=== PATIENT | male | born 1975 | race Caucasian/White ===

== ENCOUNTER 2018-03-12 12:50 | Inpatient (IN) ==
--- NOTE | 2018-03-12 13:26 | Emergency Department Note ---
Disposition Clinical Impression: Altered mental status, unspecified Qualifiers: Altered mental status type: somnolence Qualified Code(s): R40.0 - Somnolence Disposition: Still a Patient Referrals: NONE,PCP [Primary Care Provider] - General Adult HPI - General Chief complaint: ED Altered Mental Status Stated complaint: AMS Time Seen by Provider: 03/12/18 12:53 Source: EMS Nursing Notes Reviewed: Yes Vital Signs Reviewed: Yes - History of Present Illness HPI Narrative: ED attending attestation note: I examined this patient and my medical decision-making was reviewed with the emergency medicine resident Staci Torres. I agree with the documented findings, disposition and treatment plan as described except to the extent set forth below. Briefly: 42-year-old male history of some MRDD in a senior care presented by EMS complete by caretakers for altered mental status. This is the patient's from a milk and uncooperative. The past several days up to week or perhaps more he has been "walking into funes and not acting like himself". Patient does have slow response he is cooperative and follows commands. Patient is afebrile with stable vital signs. Patient will undergo mental status workup with admission anticipated. Disposition pending. Pain Scale: 0 - Related Data Home Medications Medication Instructions Recorded Confirmed Aspirin [Adult Low Dose Aspirin EC] 81 mg PO DAILY 05/22/15 03/12/18 Divalproex (24 HR) [Depakote ER 1,000 mg PO BID 05/22/15 03/12/18 (24 HR)] Gemfibrozil [Lopid] 600 mg PO BID 05/22/15 03/12/18 Haloperidol Decanoate [Haldol 125 mg IM PRN PRN 05/22/15 03/12/18 Decanoate 100] Lisinopril 2.5 mg PO DAILY 05/22/15 03/12/18 [place] Carbonate 300 mg PO TID 05/22/15 03/12/18 Loratadine [Claritin] 10 mg PO DAILY 05/22/15 03/12/18 Lovastatin [Mevacor] 20 mg PO HS 05/22/15 03/12/18 Lurasidone HCl [Latuda] 80 mg PO DAILY 05/22/15 03/12/18 Metformin HCl [Fortamet] 1,000 mg PO DAILY 05/22/15 03/12/18 Quetiapine Fumarate [Seroquel Xr] 600 mg PO BID 05/22/15 03/12/18 Artificial Tear Drops [Isopto 1 drop OP BID #0 09/02/15 03/12/18 Tears] Calcium Carbonate/Vitamin D3 1 tab PO BID 09/02/15 03/12/18 [Oyster Shell Calcium-Vit D Tab] LORazepam [Ativan] 1 mg PO BID 09/02/15 03/12/18 Levothyroxine [Synthroid] 50 mcg PO DAILY 09/02/15 03/12/18 Metformin HCl [Fortamet] 500 mg PO HS 09/02/15 03/12/18 Niacin [Niacor] 500 mg PO BID 09/02/15 03/12/18 [place]-3/Dha/Epa/Fish Oil [Fish Oil 1,000 mg PO BID #0 09/02/15 03/12/18 1,000 mg Softgel] Omeprazole [PriLOSEC] 20 mg PO QMWFSU 09/02/15 03/12/18 cloNIDine [Catapres] 0.1 mg PO DAILY 09/02/15 03/12/18 Previous Rx's Medication Instructions Recorded Doxycycline 100 mg PO BID #20 capsule 09/02/15 levoFLOXacin [Levaquin] 750 mg PO DAILY #7 tablet 07/06/17 predniSONE [PredniSONE] 40 mg PO DAILY #5 tablet 07/06/17 Allergies Allergy/AdvReac Type Severity Reaction Status Date / Time No Known Allergies Allergy Verified 03/12/18 12:19 Past Medical History - Past Medical History Medical history: Reports: COPD, DVT, diabetes, GERD, hyperlipidemia, hypertension, other Surgical history: Reports: no surgical history Psychiatric history: Reports: bipolar, schizophrenia, other - Social History Smoking Status: Current every day smoker Smokeless Tobacco Status: No Alcohol use: Reports: none Drug use: Reports: none Physical Exam - General General appearance: in no apparent distress Course Vital Signs Temperature 97.9 F 03/12/18 12:50 Pulse Rate 80 03/12/18 12:50 Respiratory Rate 16 03/12/18 12:50 Blood Pressure 103/70 03/12/18 12:50 O2 Sat by Pulse Oximetry 100 03/12/18 12:50 Temperature 97.9 F 03/12/18 12:50 Pulse Rate 80 03/12/18 12:50 Respiratory Rate 16 03/12/18 12:50 Blood Pressure 103/70 03/12/18 12:50 O2 Sat by Pulse Oximetry 100 03/12/18 12:50 Oxygen Delivery Oxygen Delivery Room Air
--- NOTE | 2018-03-12 13:26 | Emergency Department Note ---
Disposition Clinical Impression: Altered mental status, unspecified Qualifiers: Altered mental status type: somnolence Qualified Code(s): R40.0 - Somnolence Disposition: Admitted As Inpatient Condition: Fair Referrals: NONE,PCP [Primary Care Provider] - Forms: ED Satisfaction Letter Time of Disposition: 16:22 General Adult HPI - General Chief complaint: ED Altered Mental Status Stated complaint: AMS Time Seen by Provider: 03/12/18 12:53 Source: family, EMS Mode of arrival: EMS Limitations: altered mental status Nursing Notes Reviewed: Yes Vital Signs Reviewed: Yes - History of Present Illness HPI Narrative: 42-year-old male with significant past medical history of COPD and diabetes presenting to the emergency department chief complaint of altered mental status. Patient is currently living in a chcf as he has MRDD. According to his nursing specialist for the past 2 days he has had altered mental status progressively getting worse. He has been falling when he is trying ambulate and has had dark, foul-smelling urine. Today they were unable to ambulate him which is not his baseline they became concerned and brought him to urgent care. Urgent care gave him a gram of IM Rocephin because they were concerned for urinary tract infection and transferred him here for further evaluation. Patient is unable to provide any history of present illness. He is somnolent but arousable with sternal rub. Pain Scale: 0 - Related Data Home Medications Medication Instructions Recorded Confirmed Aspirin [Adult Low Dose Aspirin EC] 81 mg PO DAILY 05/22/15 03/12/18 Divalproex (24 HR) [Depakote ER 1,000 mg PO BID 05/22/15 03/12/18 (24 HR)] Gemfibrozil [Lopid] 600 mg PO BID 05/22/15 03/12/18 Haloperidol Decanoate [Haldol 125 mg IM PRN PRN 05/22/15 03/12/18 Decanoate 100] Lisinopril 2.5 mg PO DAILY 05/22/15 03/12/18 [place] Carbonate 300 mg PO TID 05/22/15 03/12/18 Loratadine [Claritin] 10 mg PO DAILY 05/22/15 03/12/18 Lovastatin [Mevacor] 20 mg PO HS 05/22/15 03/12/18 Lurasidone HCl [Latuda] 80 mg PO DAILY 05/22/15 03/12/18 Metformin HCl [Fortamet] 1,000 mg PO DAILY 05/22/15 03/12/18 Quetiapine Fumarate [Seroquel Xr] 600 mg PO BID 05/22/15 03/12/18 Artificial Tear Drops [Isopto 1 drop OP BID #0 09/02/15 03/12/18 Tears] Calcium Carbonate/Vitamin D3 1 tab PO BID 09/02/15 03/12/18 [Oyster Shell Calcium-Vit D Tab] LORazepam [Ativan] 1 mg PO BID 09/02/15 03/12/18 Levothyroxine [Synthroid] 50 mcg PO DAILY 09/02/15 03/12/18 Metformin HCl [Fortamet] 500 mg PO HS 09/02/15 03/12/18 Niacin [Niacor] 500 mg PO BID 09/02/15 03/12/18 [place]-3/Dha/Epa/Fish Oil [Fish Oil 1,000 mg PO BID #0 09/02/15 03/12/18 1,000 mg Softgel] Omeprazole [PriLOSEC] 20 mg PO QMWFSU 09/02/15 03/12/18 cloNIDine [Catapres] 0.1 mg PO DAILY 09/02/15 03/12/18 Previous Rx's Medication Instructions Recorded Doxycycline 100 mg PO BID #20 capsule 09/02/15 levoFLOXacin [Levaquin] 750 mg PO DAILY #7 tablet 07/06/17 predniSONE [PredniSONE] 40 mg PO DAILY #5 tablet 07/06/17 Allergies Allergy/AdvReac Type Severity Reaction Status Date / Time No Known Allergies Allergy Verified 03/12/18 12:19 Limitations: ROS unobtainable due to patients medical condition Past Medical History - Past Medical History Source: old records reviewed Medical history: Reports: COPD, DVT, diabetes, GERD, hyperlipidemia, hypertension, other Surgical history: Reports: no surgical history Psychiatric history: Reports: bipolar, schizophrenia, other - Social History Smoking Status: Current every day smoker Smokeless Tobacco Status: No Alcohol use: Reports: none Drug use: Reports: none Physical Exam - General General appearance: lethargic - Head Head exam: atraumatic, normocephalic, normal inspection - ENT ENT exam: mucous membranes dry - Chest Chest inspection: Present: symmetric chest wall rise - Respiratory Respiratory exam: Present: normal lung sounds bilaterally. Absent: respiratory distress, wheezes - Cardiovascular Cardiovascular exam: Present: regular rate, normal rhythm, normal heart sounds - Abdominal Exam Abdominal exam: Present: soft. Absent: distention, guarding, rebound - Extremities Exam Extremities exam: Present: normal inspection - Skin Skin exam: Present: dry, normal color Course Course Narrative: 42-year-old male presenting for altered mental status. In the room he is hemodynamically stable. Unable to perform full neurological exam due to his somnolence. Concern for infectious etiology at this time due to recent symptoms of dark and foul-smelling urine. We will perform basic laboratory analysis, urine analysis, CT of the head. We will also obtain blood cultures in case this is an infectious etiology. Disposition most likely admission but pending results. - Reevaluation(s) Reevaluation #1: Patient's laboratory analysis does not show any acute abnormality at this time. Chest x-ray and urine drug screen are within normal limits. CT of the head shows no acute abnormality. Patient has had transient altered mental status throughout his stay elbow he has been hemodynamically stable. Patient asked if he did smoke cigarettes therefore put in a nicotine patch for him. Due to his transient altered mental status he is not safe to go home to his chcf at this time. We will plan to admit him for further evaluation and observation. Patient and caregiver at bedside agree with this plan. I spoke with the hospitalist foundation coordinator Dr. Modi who agrees to accept the patient at this time. Vital Signs Temperature 97.9 F 03/12/18 12:50 Pulse Rate 80 03/12/18 12:50 Respiratory Rate 16 03/12/18 12:50 Blood Pressure 103/70 03/12/18 12:50 O2 Sat by Pulse Oximetry 100 03/12/18 12:50 Temperature 97.9 F 03/12/18 12:50 Pulse Rate 71 03/12/18 13:21 Respiratory Rate 18 03/12/18 13:21 Blood Pressure 104/76 03/12/18 13:21 O2 Sat by Pulse Oximetry 100 03/12/18 13:21 Oxygen Delivery Oxygen Delivery Room Air Medical Decision Making - Lab Data Result diagrams: 03/12/18 13:30 03/12/18 13:30 Lab Results 03/12/18 03/12/18 03/12/18 Range/Units 13:30 13:30 15:00 WBC 4.4 (4.3-11.1) K/mcL RBC 3.50 L (4.19-5.50) M/mcL Hgb 10.8 L (12.9-16.9) g/dL Hct 34.6 L (37.5-50.1) % MCV 98.9 (83.0-100.0) fL MCH 30.9 (28.0-33.3) pg MCHC 31.2 L (31.6-35.5) g/dL RDW 14.5 (11.5-14.5) % Plt Count 38 L (140-400) K/mcL MPV 9.7 (9.4-12.4) fL Immature Gran % 0.7 (0-4) % Seg Neutrophils % 52.5 % Lymphocytes % 33.5 % Monocytes % 11.5 % Eosinophils % 0.9 % Basophils % 0.9 % Neutrophils # 2.3 (1.6-8.9) K/mcL Lymphocytes # 1.5 (0.6-4.6) K/mcL Monocytes # 0.5 (0.0-1.3) K/mcL Eosinophils # 0.0 (0.0-0.6) K/mcL Basophils # 0.0 (0.0-0.2) K/mcL Immature Plt Fraction 2.1 (1.1-6.1) % Sodium 139 (136-145) mEq/L Potassium 4.5 (3.5-5.1) mEq/L Chloride 105 (98-107) mEq/L Carbon Dioxide 32 H (23-29) mEq/L BUN 24 H (6-20) mg/dL Creatinine 1.07 (0.70-1.30) mg/dL Est GFR ( Amer) > 60 (> 60) Est GFR (Non-Af Amer) > 60 (> 60) BUN/Creatinine Ratio 22 (6-26) Glucose 99 (70-105) mg/dL Calculated Osmolality 292 (280-300) Calcium 9.4 (8.6-10.3) mg/dL Total Bilirubin 0.4 (0.3-1.0) mg/dL Direct Bilirubin 0.1 (0.0-0.2) mg/dL Indirect Bilirubin 0.3 (0.0-1.2) mg/dL AST 21 (13-39) Units/L ALT 14 (7-52) Units/L Alkaline Phosphatase 43 (34-104) Units/L Troponin I < 0.03 (< 0.04) ng/mL Serum Total Protein 6.1 L (6.4-8.9) g/dL Albumin 3.6 (3.5-5.7) g/dL Globulin 2.5 (2.4-3.5) g/dL Albumin/Globulin Ratio 1.4 (1.1-2.2) Urine Color Yellow (Yellow) Urine Clarity Clear (Clear) Urine pH 7.5 (5.0-8.0) pH Units Ur Specific [place] 1.019 (1.010-1.025) Urine Protein Negative (Neg-Trace) mg/dL Urine Glucose (UA) Normal (Normal) mg/dL Urine Ketones Trace H (Negative) mg/dL Urine Blood Negative (Negative) Urine Nitrite Negative (Negative) Urine Bilirubin Small H (Negative) Urine Urobilinogen Normal (Normal) mg/dL Ur Leukocyte Esterase Trace H (Negative) Urine Microscopic RBC 0-3 (0-3) per hpf Urine Microscopic WBC 0-3 (0-3) per hpf Ur Squamous Epith Cells Moderate H (None-Few) per lpf Urine Bacteria None Seen (None-Few) per hpf Hyaline Casts None Seen (None-Few) per lpf Ur Culture Indicated? YES A (NO) Urine Opiates Screen (Ctpodk=585) ng/mL Ur Barbiturates Screen (Pvaodh=056) ng/mL Ur Phencyclidine Scrn (Cutoff=25) ng/mL Ur Amphetamines Screen (Gshwru=4031) ng/mL U Benzodiazepines Scrn (Vbawwq=297) ng/mL Urine Cocaine Screen (Cutoff= 300) ng/mL U Marijuana (THC) Screen (Cutoff = 50) ng/mL Ur Drug Screen Interp Ethyl Alcohol < 10 (Less than 10) mg/dL 03/12/18 Range/Units 15:00 WBC (4.3-11.1) K/mcL RBC (4.19-5.50) M/mcL Hgb (12.9-16.9) g/dL Hct (37.5-50.1) % MCV (83.0-100.0) fL MCH (28.0-33.3) pg MCHC (31.6-35.5) g/dL RDW (11.5-14.5) % Plt Count (140-400) K/mcL MPV (9.4-12.4) fL Immature Gran % (0-4) % Seg Neutrophils % % Lymphocytes % % Monocytes % % Eosinophils % % Basophils % % Neutrophils # (1.6-8.9) K/mcL Lymphocytes # (0.6-4.6) K/mcL Monocytes # (0.0-1.3) K/mcL Eosinophils # (0.0-0.6) K/mcL Basophils # (0.0-0.2) K/mcL Immature Plt Fraction (1.1-6.1) % Sodium (136-145) mEq/L Potassium (3.5-5.1) mEq/L Chloride (98-107) mEq/L Carbon Dioxide (23-29) mEq/L BUN (6-20) mg/dL Creatinine (0.70-1.30) mg/dL Est GFR ( Amer) (> 60) Est GFR (Non-Af Amer) (> 60) BUN/Creatinine Ratio (6-26) Glucose (70-105) mg/dL Calculated Osmolality (280-300) Calcium (8.6-10.3) mg/dL Total Bilirubin (0.3-1.0) mg/dL Direct Bilirubin (0.0-0.2) mg/dL Indirect Bilirubin (0.0-1.2) mg/dL AST (13-39) Units/L ALT (7-52) Units/L Alkaline Phosphatase (34-104) Units/L Troponin I (< 0.04) ng/mL Serum Total Protein (6.4-8.9) g/dL Albumin (3.5-5.7) g/dL Globulin (2.4-3.5) g/dL Albumin/Globulin Ratio (1.1-2.2) Urine Color (Yellow) Urine Clarity (Clear) Urine pH (5.0-8.0) pH Units Ur Specific [place] (1.010-1.025) Urine Protein (Neg-Trace) mg/dL Urine Glucose (UA) (Normal) mg/dL Urine Ketones (Negative) mg/dL Urine Blood (Negative) Urine Nitrite (Negative) Urine Bilirubin (Negative) Urine Urobilinogen (Normal) mg/dL Ur Leukocyte Esterase (Negative) Urine Microscopic RBC (0-3) per hpf Urine Microscopic WBC (0-3) per hpf Ur Squamous Epith Cells (None-Few) per lpf Urine Bacteria (None-Few) per hpf Hyaline Casts (None-Few) per lpf Ur Culture Indicated? (NO) Urine Opiates Screen Negative (Fpbmgq=892) ng/mL Ur Barbiturates Screen Negative (Cjpqyh=769) ng/mL Ur Phencyclidine Scrn Negative (Cutoff=25) ng/mL Ur Amphetamines Screen Negative (Xqphen=2789) ng/mL U Benzodiazepines Scrn Negative (Sptnfk=871) ng/mL Urine Cocaine Screen Negative (Cutoff= 300) ng/mL U Marijuana (THC) Screen Negative (Cutoff = 50) ng/mL Ur Drug Screen Interp See Below Ethyl Alcohol (Less than 10) mg/dL - EKG Data EKG #1 EKG attestation: Yes I reviewed and interpreted this EKG. EKG results narrative: Sinus rhythm. Left axis deviation. 74 beats for minute. SC interval 167, QRS 109, QTC 432. No sign of acute ST segment elevation or ischemia
[2018-03-12 13:50] LABS: Mean Platelet Volume 9.7 fL (9.4-12.4)
[2018-03-12 13:51] LABS: Basophils % 0.9 %; Eosinophils % 0.9 %; Immature Granulocytes % 0.7 % (0-4); Monocytes % 11.5 %
[2018-03-12 13:52] LABS: Hematocrit 34.6 % (37.5-50.1); Hemoglobin 10.8 g/dL (12.9-16.9); Immature Platelets 2.1 % (1.1-6.1); Lymphocytes # 1.5 K/mcL (0.6-4.6); Lymphocytes % 33.5 %; Mean Corpuscular HGB Conc 31.2 g/dL (31.6-35.5); Mean Corpuscular Hemoglobin 30.9 pg (28.0-33.3); Mean Corpuscular Volume 98.9 fL (83.0-100.0); Monocytes # 0.5 K/mcL (0.0-1.3); Neutrophils # 2.3 K/mcL (1.6-8.9); Red Cell Distribution Width 14.5 % (11.5-14.5); Segmented Neutrophils % 52.5 %
[2018-03-12 13:55] LABS: Platelet Count 38 K/mcL (140-400)
[2018-03-12 14:14] LABS: Troponin I < 0.03 ng/mL (< 0.04)
[2018-03-12 14:16] LABS: Alanine Aminotransferase 14 Units/L (7-52); Albumin 3.6 g/dL (3.5-5.7); Albumin/Globulin Ratio 1.4 (1.1-2.2); Alkaline Phosphatase 43 Units/L (34-104); Aspartate Amino Transferase 21 Units/L (13-39); BUN/Creatinine Ratio 22 (6-26); Bilirubin,Direct 0.1 mg/dL (0.0-0.2); Bilirubin,Indirect 0.3 mg/dL (0.0-1.2); Bilirubin,Total 0.4 mg/dL (0.3-1.0); Blood Urea Nitrogen 24 mg/dL (6-20); Calcium 9.4 mg/dL (8.6-10.3); Carbon Dioxide 32 mEq/L (23-29); Chloride 105 mEq/L (98-107); Ethanol < 10 mg/dL (Less than 10); Globulin 2.5 g/dL (2.4-3.5); Glucose 99 mg/dL (70-105); Osmolality,Calculated 292 (280-300); Potassium 4.5 mEq/L (3.5-5.1); Sodium 139 mEq/L (136-145); Total Protein 6.1 g/dL (6.4-8.9); eGFR For Non-African Americans > 60 (> 60)
[2018-03-12 15:14] LABS: Bilirubin,Urine Small (Negative); Blood,Urine Negative (Negative); Clarity,Urine Clear (Clear); Color,Urine Yellow (Yellow); Glucose,Urine (UA) Normal (Normal); Ketones,Urine Trace mg/dL (Negative); Leukocyte Esterase,Urine Trace (Negative); Nitrite,Urine Negative (Negative); PH,Urine 7.5 pH Units (5.0-8.0); Protein,Urine Negative (Neg-Trace); Specific Gravity,Urine 1.019 (1.010-1.025); Urobilinogen,Urine Normal (Normal)
[2018-03-12 15:19] LABS: Bacteria,Urine None Seen per hpf (None-Few); Hyaline Casts,Urine None Seen per lpf (None-Few); RBC,Urine 0-3 per hpf (0-3); Squamous Epithelial Cell,Urine Moderate per lpf (None-Few); WBC,Urine 0-3 per hpf (0-3)
[2018-03-12 15:21] LABS: Amphetamine Screen,Urine Negative ng/mL (Cutoff=1000); Barbiturate Screen,Urine Negative ng/mL (Cutoff=200); Benzodiazepines Screen,Urine Negative ng/mL (Cutoff=200); Cannabinoid Screen,Urine Negative ng/mL (Cutoff = 50); Cocaine Screen,Urine Negative ng/mL (Cutoff= 300); Opiate Screen,Urine Negative ng/mL (Cutoff=300); Phencyclidine Screen,Urine Negative ng/mL (Cutoff=25)
[2018-03-12] MEDS ORDERED: Naloxone 0.4 MG/ML INJ IVP PRN (16:26)
[2018-03-12 16:49] LABS: Creatine Kinase 53 Units/L (30-223)
--- NOTE | 2018-03-12 16:53 | Internal Med History&Physical ---
Date of Encounter: 03/12/18 Time of Encounter: 16:46 Internal Medicine - H&P: HPI Chief complaint: AMS Admitted From: Long-term Nursing Facility Plans for Post Hospital Care: Transfer Assisted Facility History of present illness: Mr. Koch is a 42 year old male with MRDD lives at [facility], COPD, DM2, Bipolar disorder on multiple psych medications and recent tooth extraction presented to the ED with AMS. car is unable to provide any history ( at baseline). As per caregiver setting at bedside he has become more lethargic over the past 2 days and has become more unsteady on his feet. She denies recent falls or head trauma. In addition to above he is also developed dark, foul-smelling urine for the past 2 days however he is not complaining of any dysuria or burning or difficulty urinating to the caregiver. On the day of admission he had increased difficulty and was more unsteady on his feet so the caregiver to come to the urgent care in the urgent care he received IM ceftriaxone for possible urinary tract infection and was transferred to [place] for further evaluations. Caregiver also reports that he recently had to teeth extracted for cavity however there were no complications. While the emergency department CT head performed which was negative for any acute abnormalities. Chest x-ray did not show any acute cardiopulmonary disease. UA was positive and U tox was negative he was endorsed for further evaluation of his altered mental status. when asked if he has any complaints he shakes his head no. unable to provide ROS while being treated in the ED and after receiving ceftriaxone as per critical care transport nurse at bedside his mental status is more at baseline Past Med Surg Social Fam HX - Past Medical History Medical history: COPD, DVT, diabetes, GERD, hyperlipidemia, hypertension, other Additional medical history: cataracts. speech impediment Psychiatric history: bipolar, schizophrenia, other - Past Surgical History Surgical History: no surgical history - Social History Smoking Status: Current every day smoker Smokeless Tobacco Status: No Alcohol use: none Drug use: none - Family History Mother Hx Family Cardiac Disorders: Yes Hx Family Respiratory Disorders: No Hx Family Cancer: No Hx Family GI Disorders: Yes (GERD) Hx Family Endocrine Disorder: Yes (DM) Hx Family Neuromuscular Disorders: No Hx Family Neurologic Disorders: No Hx Family HEENT Disorders: No Hx Family Autoimmune Disorders: No Father Living Status: Still Living Hx Family Cardiac Disorders: No Hx Family Respiratory Disorders: No Hx Family Cancer: No Hx Family GI Disorders: No Hx Family Endocrine Disorder: Yes (DM) Hx Family Neuromuscular Disorders: No Hx Family Neurologic Disorders: No Hx Family HEENT Disorders: No Hx Family Autoimmune Disorders: No Internal Medicine - H&P: Meds Divalproex (24 HR) [Depakote ER (24 HR)] 1,000 mg PO BID 05/22/15 [History] Gemfibrozil [Lopid] 600 mg PO BID 05/22/15 [History] Haloperidol Decanoate [Haldol Decanoate 100] 125 mg IM Q2W 05/22/15 [History] Lisinopril 2.5 mg PO DAILY 05/22/15 [History] Tamms Carbonate 300 mg PO 07,199905/22/15 [History] Loratadine [Claritin] 10 mg PO DAILY 05/22/15 [History] Lovastatin [Mevacor] 20 mg PO HS 05/22/15 [History] Lurasidone HCl [Latuda] 80 mg PO QPM 05/22/15 [History] Metformin HCl [Fortamet] 1,000 mg PO 0705/22/15 [History] Artificial Tear Drops [Isopto Tears] 1 drop OP DAILY #0 09/02/15 [History] Calcium Carbonate/Vitamin D3 [Oyster Shell Calcium-Vit D Tab] 1 tab PO BID 09/02/15 [History] LORazepam [Ativan] 1 mg PO 0800,199909/02/15 [History] Metformin HCl [Fortamet] 500 mg PO 199909/02/15 [History] Niacin [Niacor] 500 mg PO BID 09/02/15 [History] [place]-3/Dha/Epa/Fish Oil [Fish Oil 1,000 mg Softgel] 1,000 mg PO BID #0 09/02/15 [History] Omeprazole [PriLOSEC] 20 mg PO QAM 09/02/15 [History] cloNIDine [Catapres] 0.1 mg PO DAILY 09/02/15 [History] Acetaminophen [Tylenol] 650 mg PO Q4HR PRN 03/12/18 [History] Albuterol Neb [Proventil Neb] 2.5 mg IH Q2H PRN 03/12/18 [History] Ammonium Lactate [Lac-Hydrin Five] 1 appl TP DAILY 03/12/18 [History] Aspirin [Lo-Dose Aspirin EC] 81 mg PO DAILY 03/12/18 [History] Glucagon,Human Recombinant [Glucagen] 1 vial IM AD PRN 03/12/18 [History] Ibuprofen [Motrin Ib] 400 mg PO Q4H PRN 03/12/18 [History] Levothyroxine Sodium [Tirosint] 75 mcg PO QAM 03/12/18 [History] Loperamide HCl [Imodium A-D] 2 - 4 mg PO DAILY PRN 03/12/18 [History] Magnesium Hydroxide [Milk of Magnesia] 3 ml PO DAILY PRN 03/12/18 [History] Miconazole 2% cream [Alfonso Antifungal] 1 appl TP QAM 03/12/18 [History] Quetiapine Fumarate [Quetiapine Fumarate ER] 200 mg PO 0700,199903/12/18 [History] Quetiapine Fumarate [Quetiapine Fumarate ER] 400 mg PO 0700,199903/12/18 [History] Tolnaftate [Tinactin] 108 gm TP QAM 03/12/18 [History] Triamcinolone Acet 0.1% CRM [Kenalog] 1 applic TP BID PRN 03/12/18 [History] Trihexyphenidyl HCl 5 mg PO QAM 03/12/18 [History] Allergy/AdvReac Type Severity Reaction Status Date / Time No Known Allergies Allergy Verified 03/12/18 12:19 ROS unobtainable: due to mental status - Constitutional Vitals: Temp Pulse Resp BP Pulse Ox 97.9 F 71 18 104/76 100 03/12/18 12:50 03/12/18 13:21 03/12/18 13:21 03/12/18 13:21 03/12/18 13:21 Exam: General: Patient is alert, drooling, unkempt, pale Head: atraumatic, normocephalic, prominent forehead Eye: normal appearance, PERRL, no scleral icterus, no conjunctival injection ENT: mucous membranes moist, normal external ear exam, right lower tooth extraction no signs of bleeding Neck: Full range of motion of the neck, no neck stiffness Chest: normal inspection, symmetric chest rise Respiratory: Good respiratory effort. Decreased breath sounds bilaterally, could not appreciate any wheezing or crackles Cardiovascular: Regular rate and rhythm. s1 and s2 No clicks, rubs, gallops, or murmors. Abdomen: Bowel sounds present normoactive x-4 quadrants. Abdomen is soft, nondistended. no Epigastric tenderness. No guarding or rebound. No organomegaly noted, obese musculoskeletal: Spontaneously moving all extremities. no edema, no calf t enderness Skin: warm, dry, intact. Neuro: Alert and oriented to self, place and person. When asked who the president he replied Payam Chahal. currently moving all extremities. Psych: Patient's affect is normal Internal Med - H&P Results - Labs CBC & Chem 7: 03/12/18 13:30 03/12/18 13:30 Labs: Short CBC 03/12/18 Range/Units 13:30 WBC 4.4 (4.3-11.1) K/mcL Hgb 10.8 L (12.9-16.9) g/dL Hct 34.6 L (37.5-50.1) % Plt Count 38 L (140-400) K/mcL Neutrophils # 2.3 (1.6-8.9) K/mcL BMP 03/12/18 13:30 Sodium 139 Potassium 4.5 Chloride 105 Carbon Dioxide 32 H BUN 24 H Creatinine 1.07 Glucose 99 Calcium 9.4 Cardiac Enzymes 03/12/18 Range/Units 13:30 Troponin I < 0.03 (< 0.04) ng/mL Liver Function 03/12/18 Range/Units 13:30 Total Bilirubin 0.4 (0.3-1.0) mg/dL Direct Bilirubin 0.1 (0.0-0.2) mg/dL AST 21 (13-39) Units/L ALT 14 (7-52) Units/L Alkaline Phosphatase 43 (34-104) Units/L Albumin 3.6 (3.5-5.7) g/dL Urine 03/12/18 Range/Units 15:00 Urine Color Yellow (Yellow) Urine Clarity Clear (Clear) Urine pH 7.5 (5.0-8.0) pH Units Ur Specific [place] 1.019 (1.010-1.025) Urine Protein Negative (Neg-Trace) mg/dL Urine Glucose (UA) Normal (Normal) mg/dL - EKG Data -: EKG Interpreted by Myself (sinus rhythm, QTC 432 ) - EKG Data Prior EKG available for review: yes When compared to previous EKG: there is no significant change - Impressions ITS Impressions Chest X-Ray 03/12/18 13:21 IMPRESSION: 1. No acute cardiopulmonary disease. 2. Stable opacity in the left mid lung zone periphery, measuring approximately 2.5 cm. Adjacent pleural thickening is also seen. D/ / 03/12/2018 13:59:37 Sara Reddy MD / [place] Interpreting Provider: Sara Reddy MD Head CT 03/12/18 13:21 IMPRESSION: No acute intracranial abnormality. D/ / Mack Chatterjee MD / Mack Chatterjee MD Interpreting Provider: Mack Chatterjee MD - Assessment and plan (1) Acute encephalopathy Current Visit: Yes Status: Acute Assessment and plan: acute encephalopathy most likely secondary to urinary tract infection He is on multiple psych medications such as lithium, depakote we will check levels CT head negative for any acute abnormality Neuro checks every 4 hours U tox negative Continue with IV hydration with NS at 80 mL/h Aspiration, fall, seizure precautions will get brain MRI to r/o posterior fossa stroke (2) UTI (urinary tract infection) Current Visit: Yes Status: Acute Assessment and plan: Continue with ceftriaxone Follow urine cultures Qualifiers: Urinary tract infection type: acute cystitis Hematuria presence: without hematuria Qualified Code(s): N30.00 - Acute cystitis without hematuria (3) Thrombocytopenia Current Visit: No Status: Acute Assessment and plan: ? medication induced Platelets range anywhere from 79-190 currently there are 38 Avoid antiplatelets, anticoagulation No signs of bleeding Type and screen PT/INR peripheral smear (4) Normocytic anemia Current Visit: Yes Status: Acute Assessment and plan: Baseline H&H ranges anywhere from 10.8 to 13 Currently 10.8 Did have recent tooth extraction and has thrombocytopenia will watch for bleeding (5) Developmental delay, moderate Current Visit: Yes Status: Acute Assessment and plan: MRDD at baseline We will continue redirection Fall, aspiration, seizure precautions (6) Schizophrenia Current Visit: Yes Status: Acute Assessment and plan: We will continue home medications Follow drug levels as per caregiver levels have not been checked for a long time Qualifiers: Schizophrenia type: unspecified Qualified Code(s): F20.9 - Schizophrenia, unspecified (7) Left pulmonary lesion Current Visit: Yes Status: Acute Assessment and plan: chronic CT on 09/2017 - Previously described ovoid opacity within the left upper lobe peripherally measures approximately 4.8 x 2.3 cm, slightly increased in size as compared to 4.0 x 1.8 cm on the previous study. PET scan performed on 10/28/17- IMPRESSION: Minimal metabolic activity is seen within peripheral and bandlike zones of consolidation within the left lung, favoring etiology such as rounded atelectasis or scarring over malignancy as a consequence. Continued CT follow-up is suggested. There is however mild activity within loculated small left pleural effusion. Some considerations include inflammatory, infectious, or malignant effusion. Large amount of stool throughout the colon. Small amount of fluid is seen within the right inguinal canal with mild associated activity, suggestive of localized inflammation. Suggest correlation with physical exam. (8) Current every day smoker Current Visit: Yes Status: Acute Assessment and plan: nicotine patch (9) DVT prophylaxis Current Visit: No Status: Acute Assessment and plan: SCDs - Time Spent With Patient Total time spent is greater than 50% in coordination of care (as documented) at patient's floor/unit and/or counseling patient:
[2018-03-12] MEDS ORDERED: MOM Conc 10 ML UD.LIQ PO PRN (17:01)
[2018-03-12] MEDS ORDERED: Acetaminophen 325 MG TABLET PO PRN (17:01)
[2018-03-12] MEDS ORDERED: Albuterol 2.5 MG/3 ML NEBULIZER IH PRN (17:01)
[2018-03-12] MEDS ORDERED: Triamcinolone Acet 0.1% CRM 15 GM TUBE TP PRN (17:01)
[2018-03-12] MEDS ORDERED: QUETIAPINE FUMARATE 200 MG PO SCH (20:00)
[2018-03-12] MEDS: Thiamine (B-1) 100 MG in D5% in Water 50 ML IVPB SCH (21:34)
[2018-03-12] MEDS: Divalproex (24 HR) 500 MG TABLET PO SCH (21:35)
[2018-03-12] MEDS: *HR* LORazepam 1 MG TABLET PO SCH (21:35)
[2018-03-12] MEDS: Nicotine 21 MG PATCH.TD24 TD SCH (21:36)
[2018-03-12] MEDS: Lithium Carbonate 300 MG CAPSULE PO SCH (21:36)
[2018-03-12] MEDS: 0.9 % Sodium Chloride 1,000 ML IVC SCH (21:36)
[2018-03-12] MEDS: NIACIN 500 MG PO SCH (21:51)
[2018-03-12] MEDS: (Omega-3/Dha/Epa/Fish Oil [Fish Oil 1,000 Mg Softgel]) PO SCH (21:51)
[2018-03-12] MEDS: cefTRIAXone 2,000 MG in 0.9 % Sodium Chloride Mini Bag 100 ML IVPB SCH (23:17)
[2018-03-13 04:35] LABS: Basophils # 0.1 K/mcL (0.0-0.2); Immature Granulocytes % 0.6 % (0-4)
[2018-03-13 04:37] LABS: Eosinophils % 0.8 %; Hematocrit 36.5 % (37.5-50.1); Hemoglobin 11.3 g/dL (12.9-16.9); Immature Platelets 1.7 % (1.1-6.1); Lymphocytes # 1.4 K/mcL (0.6-4.6); Lymphocytes % 27.1 %; Mean Corpuscular Hemoglobin 30.4 pg (28.0-33.3); Mean Corpuscular Volume 98.1 fL (83.0-100.0); Mean Platelet Volume 9.8 fL (9.4-12.4); Monocytes # 0.7 K/mcL (0.0-1.3); Monocytes % 13.2 %; Red Blood Count 3.72 M/mcL (4.19-5.50); Red Cell Distribution Width 14.1 % (11.5-14.5); Segmented Neutrophils % 57.3 %
[2018-03-13 04:38] LABS: Prothrombin Time 11.5 Seconds (9.4-12.1)
[2018-03-13 04:41] LABS: Activated Partial Thrombo Time 32.8 Seconds (26.0-36.0); BUN/Creatinine Ratio 21 (6-26); Blood Urea Nitrogen 20 mg/dL (6-20); Calcium 8.8 mg/dL (8.6-10.3); Carbon Dioxide 30 mEq/L (23-29); Chloride 104 mEq/L (98-107); Glucose 112 mg/dL (70-105); Osmolality,Calculated 287 (280-300); Phosphorous 3.8 mg/dL (2.7-4.5); Potassium 5.1 mEq/L (3.5-5.1); Sodium 137 mEq/L (136-145); eGFR For Non-African Americans > 60 (> 60)
[2018-03-13 04:54] LABS: Platelet Count 41 K/mcL (140-400)
[2018-03-13] MEDS ORDERED: tiZANidine 4 MG TABLET PO ONE ×2 (05:34→21:32)
[2018-03-13] MEDS: Loratadine 10 MG TABLET PO SCH (07:35)
[2018-03-13] MEDS: cloNIDine HCl 0.1 MG TABLET PO SCH (07:35)
[2018-03-13] MEDS: *HR* LORazepam 1 MG TABLET PO SCH ×2 (07:35→20:46)
[2018-03-13] MEDS: Cholecalciferol (D-3) 1,000 UNIT TABLET PO SCH (07:35)
[2018-03-13] MEDS: Divalproex (24 HR) 500 MG TABLET PO SCH ×2 (07:35→20:46)
[2018-03-13] MEDS: Lithium Carbonate 300 MG CAPSULE PO SCH ×2 (07:43→20:46)
[2018-03-13] MEDS: Ammonium Lactate 30 APPL/225 GM BOTTLE TP SCH (07:44)
[2018-03-13] MEDS: TOLNAFTATE 108 GM TP SCH (07:44)
[2018-03-13] MEDS: Artificial Tears SOLN 15 ML BOTTLE OP SCH (07:44)
[2018-03-13] MEDS: NIACIN 500 MG PO SCH ×2 (08:30→20:54)
[2018-03-13] MEDS: (Omega-3/Dha/Epa/Fish Oil [Fish Oil 1,000 Mg Softgel]) PO SCH ×2 (08:30→20:54)
[2018-03-13] MEDS ORDERED: Aspirin Enteric Coated 81 MG Tablet PO SCH (09:00)
[2018-03-13] MEDS: 0.9 % Sodium Chloride 1,000 ML IVC SCH (10:15)
[2018-03-13] MEDS: Nicotine 21 MG PATCH.TD24 TD SCH (11:34)
[2018-03-13] MEDS: Thiamine (B-1) 100 MG in D5% in Water 50 ML IVPB SCH (11:35)
--- NOTE | 2018-03-13 11:52 | Internal Med Progress Note ---
Hospitalist Progress Note - Encounter Date of Encounter: 03/13/18 Time of Encounter: 11:49 - Subjective Interval History: drowsy after receiving home morning medications. arrousable by touch. as per nursing staff he did not sleep over night. currrently maintaining his airway and at times it seems as though he is awake however acts as though he is sleeping. nursing staff to keep him NPO , elevated HOb and hold all medications h=until mental status improved, continues pulse ox - Exam Vitals: Temp Pulse Resp BP Pulse Ox 97.4 F L 60 18 89/58 96 03/13/18 11:00 03/13/18 11:00 03/13/18 11:00 03/13/18 11:00 03/13/18 11:00 Exam: General: Patient is drowsy, drooling, unkempt, pale Head: atraumatic, normocephalic, prominent forehead Eye: normal appearance, PERRL, no scleral icterus, no conjunctival injection ENT: mucous membranes moist, normal external ear exam, right lower tooth extraction no signs of bleeding Neck: Full range of motion of the neck, no neck stiffness Chest: normal inspection, symmetric chest rise Respiratory: Good respiratory effort. Decreased breath sounds bilaterally, could not appreciate any wheezing or crackles Cardiovascular: Regular rate and rhythm. s1 and s2 No clicks, rubs, gallops, or murmors. Abdomen: Bowel sounds present normoactive x-4 quadrants. Abdomen is soft, nondistended. no Epigastric tenderness. No guarding or rebound. No organomegaly noted, obese musculoskeletal: Spontaneously moving all extremities. no edema, no calf tenderness Skin: warm, dry, intact. Neuro: drowsy, arrousable by touch and calling name, unsure if its also psych related as he acts as though he is sleeping but helps with positioning himself in the bed. - Assessment and Plan (1) Acute encephalopathy Current Visit: Yes Status: Acute Assessment and Plan: acute encephalopathy most likely secondary to urinary tract infection vs medications vs psych related ( has extensive Psych history) on 03/12- he was alert and awake and mental status improved as compared to presentation to the ED on 03/13 became more dowsey after AM medication- will need psych consult for possible medication reconciliation once mental status improved - change in mental status could be secondary to multiple psych medications. He is on multiple psych medications such as lithium- level checked on 03/12- 0.9 CT head negative for any acute abnormality MRI head performed and There is no acute infarct. No mass effect or midline shift. No evidence of an acute intracranial hemorrhage. The ventricles and sulci are normal in size and configuration. The sellar/suprasellar regions appear unremarkable. Neuro checks every 4 hours U tox negative Continue with IV hydration with NS at 80 mL/h Aspiration, fall, seizure precautions (2) UTI (urinary tract infection) Current Visit: Yes Status: Acute Assessment and Plan: Continue with ceftriaxone Follow urine cultures (3) Thrombocytopenia Current Visit: No Status: Acute Assessment and Plan: ? medication induced Platelets range anywhere from 79-190 were 38 on admission currently 41- no signs of bleeding Avoid antiplatelets, anticoagulation No signs of bleeding Type and screen- performed PT/INR - WNL peripheral smear - pending (4) Normocytic anemia Current Visit: Yes Status: Acute Assessment and Plan: Baseline H&H ranges anywhere from 10.8 to 13 Currently 11.3 Did have recent tooth extraction and has thrombocytopenia will watch for bleeding (5) Developmental delay, moderate Current Visit: Yes Status: Acute Assessment and Plan: MRDD at baseline We will continue redirection Fall, aspiration, seizure precautions (6) Schizophrenia Current Visit: Yes Status: Acute Assessment and Plan: We will continue home medications lithium level 0.9 (7) Left pulmonary lesion Current Visit: Yes Status: Acute Assessment and Plan: chronic - needs to have repeat CT and further work up will consider pulmonology when metal status improves CT on 09/2017 - Previously described ovoid opacity within the left upper lobe peripherally measures approximately 4.8 x 2.3 cm, slightly increased in size as compared to 4.0 x 1.8 cm on the previous study. PET scan performed on 10/28/17- IMPRESSION: Minimal metabolic activity is seen within peripheral and bandlike zones of consolidation within the left lung, favoring etiology such as rounded atelectasis or scarring over malignancy as a consequence. Continued CT follow-up is suggested. There is however mild activity within loculated small left pleural effusion. Some considerations include inflammatory, infectious, or malignant effusion. Large amount of stool throughout the colon. Small amount of fluid is seen within the right inguinal canal with mild associated activity, suggestive of localized inflammation. Suggest correlation with physical exam. (8) Current every day smoker Current Visit: Yes Status: Acute Assessment and Plan: nicotine patch (9) DVT prophylaxis Current Visit: No Status: Acute Assessment and Plan: SCDs - Time Spent with Patient Total time spent is greater than 50% in coordination of care (as documented) at patient's floor/unit and/or counseling patient: Internal Medicine: Result - Labs CBC & Chem 7: 03/13/18 03:36 03/13/18 03:36 Labs: Short CBC 03/12/18 03/13/18 Range/Units 13:30 03:36 WBC 4.4 5.2 (4.3-11.1) K/mcL Hgb 10.8 L 11.3 L (12.9-16.9) g/dL Hct 34.6 L 36.5 L (37.5-50.1) % Plt Count 38 L 41 L (140-400) K/mcL Neutrophils # 2.3 3.0 (1.6-8.9) K/mcL BMP 03/12/18 03/13/18 13:30 03:36 Sodium 139 137 Potassium 4.5 5.1 Chloride 105 104 Carbon Dioxide 32 H 30 H BUN 24 H 20 Creatinine 1.07 0.94 Glucose 99 112 H Calcium 9.4 8.8 Cardiac Enzymes 03/12/18 Range/Units 13:30 Troponin I < 0.03 (< 0.04) ng/mL Liver Function 03/12/18 Range/Units 13:30 Total Bilirubin 0.4 (0.3-1.0) mg/dL Direct Bilirubin 0.1 (0.0-0.2) mg/dL AST 21 (13-39) Units/L ALT 14 (7-52) Units/L Alkaline Phosphatase 43 (34-104) Units/L Albumin 3.6 (3.5-5.7) g/dL Urine 03/12/18 Range/Units 15:00 Urine Color Yellow (Yellow) Urine Clarity Clear (Clear) Urine pH 7.5 (5.0-8.0) pH Units Ur Specific [place] 1.019 (1.010-1.025) Urine Protein Negative (Neg-Trace) mg/dL Urine Glucose (UA) Normal (Normal) mg/dL - ABG Interpretation ABG results: PT/INR, D-dimer PT 11.5 Seconds (9.4-12.1) 03/13/18 03:36 - Impressions Impressions Chest X-Ray 03/12/18 13:21 IMPRESSION: 1. No acute cardiopulmonary disease. 2. Stable opacity in the left mid lung zone periphery, measuring approximately 2.5 cm. Adjacent pleural thickening is also seen. D/ / 03/12/2018 13:59:37 Sara Reddy MD / [place] Interpreting Provider: Sara Reddy MD Head CT 03/12/18 13:21 IMPRESSION: No acute intracranial abnormality. D/ / Mack Chatterjee MD / Mack Chatterjee MD Interpreting Provider: Mack Chatterjee MD Consult Discharge Plan - Plan Referrals: NONE,PCP [Primary Care Provider] - (2) UTI (urinary tract infection) Qualifiers: Urinary tract infection type: acute cystitis Hematuria presence: without hematuria Qualified Code(s): N30.00 - Acute cystitis without hematuria (6) Schizophrenia Qualifiers: Schizophrenia type: unspecified Qualified Code(s): F20.9 - Schizophrenia, unspecified
[2018-03-13] MEDS ORDERED: *HR* LORazepam 2 MG/ML VIAL IVP ONE (21:31)
[2018-03-13] MEDS: *HR* Promethazine 25 MG/ML VIAL IVP PRN (23:12)
[2018-03-13] MEDS: cefTRIAXone 2,000 MG in 0.9 % Sodium Chloride Mini Bag 100 ML IVPB SCH (23:15)
[2018-03-14 00:26] LABS: Adenovirus Not Detected (Not Detect); Bordetella Pertussis Not Detected (Not Detect); Chlamydophila pneumoniae Not Detected (Not Detect); Coronavirus 229E Not Detected (Not Detect); Coronavirus HKU1 Not Detected (Not Detect); Coronavirus NL63 Not Detected (Not Detect); Coronavirus OC43 Not Detected (Not Detect); Human Metapneumovirus Not Detected (Not Detect); Human Rhinovirus/Enterovirus Not Detected (Not Detect); Influenza A Subtype 2009 H1 Not Detected (Not Detect); Influenza A Untypeable Not Detected (Not Detect); Influenza B Not Detected (Not Detect); Mycoplasma pneumoniae Not Detected (Not Detect); Parainfluenza Virus 1 Not Detected (Not Detect); Parainfluenza Virus 2 Not Detected (Not Detect); Parainfluenza Virus 3 Not Detected (Not Detect); Parainfluenza Virus 4 Not Detected (Not Detect); Respiratory Syncytial Virus Not Detected (Not Detect)
[2018-03-14] MEDS: 0.9 % Sodium Chloride 1,000 ML IVC SCH (05:45)
[2018-03-14] MEDS: Lithium Carbonate 300 MG CAPSULE PO SCH ×2 (05:46→20:04)
[2018-03-14 06:35] LABS: Hematocrit 36.4 % (37.5-50.1); Hemoglobin 11.4 g/dL (12.9-16.9); Immature Platelets 1.4 % (1.1-6.1); Mean Corpuscular HGB Conc 31.3 g/dL (31.6-35.5); Mean Corpuscular Hemoglobin 30.6 pg (28.0-33.3); Mean Corpuscular Volume 97.6 fL (83.0-100.0); Mean Platelet Volume 9.9 fL (9.4-12.4); Red Blood Count 3.73 M/mcL (4.19-5.50); Red Cell Distribution Width 14.1 % (11.5-14.5)
[2018-03-14 06:36] LABS: Platelet Count 39 K/mcL (140-400)
[2018-03-14 06:53] LABS: BUN/Creatinine Ratio 17 (6-26); Blood Urea Nitrogen 13 mg/dL (6-20); Calcium 9.1 mg/dL (8.6-10.3); Carbon Dioxide 29 mEq/L (23-29); Chloride 108 mEq/L (98-107); Glucose 79 mg/dL (70-105); Osmolality,Calculated 291 (280-300); Potassium 4.4 mEq/L (3.5-5.1); Sodium 141 mEq/L (136-145); eGFR For Non-African Americans > 60 (> 60)
[2018-03-14] MEDS: TOLNAFTATE 108 GM TP SCH (08:06)
[2018-03-14] MEDS: (Omega-3/Dha/Epa/Fish Oil [Fish Oil 1,000 Mg Softgel]) PO SCH ×2 (08:06→20:16)
[2018-03-14] MEDS: NIACIN 500 MG PO SCH ×2 (08:06→20:16)
[2018-03-14] MEDS: Loratadine 10 MG TABLET PO SCH (09:47)
[2018-03-14] MEDS: *HR* LORazepam 1 MG TABLET PO SCH ×2 (09:47→20:00)
[2018-03-14] MEDS: Cholecalciferol (D-3) 1,000 UNIT TABLET PO SCH (09:47)
[2018-03-14] MEDS: Divalproex (24 HR) 500 MG TABLET PO SCH ×2 (09:47→20:01)
[2018-03-14] MEDS: Ammonium Lactate 30 APPL/225 GM BOTTLE TP SCH (09:49)
[2018-03-14] MEDS: Nicotine 21 MG PATCH.TD24 TD SCH (09:49)
[2018-03-14] MEDS: Artificial Tears SOLN 15 ML BOTTLE OP SCH (09:49)
[2018-03-14] MEDS: cloNIDine HCl 0.1 MG TABLET PO SCH (09:49)
[2018-03-14] MEDS: Thiamine (B-1) 100 MG in D5% in Water 50 ML IVPB SCH (10:34)
--- NOTE | 2018-03-14 13:19 | Internal Med Progress Note ---
Hospitalist Progress Note - Encounter Date of Encounter: 03/14/18 Time of Encounter: 13:17 - Subjective Interval History: Seen and examined at bedside. Patient is new to me, information obtained mostly from chart review as patient is alert to self and place only. He does have history of MRDD and is not able to provide details. No family or staff from skilled nursing available for collateral. - Exam Vitals: Temp Pulse Resp BP Pulse Ox 97.8 F 101 16 116/76 91 03/14/18 11:42 03/14/18 11:42 03/14/18 11:42 03/14/18 11:42 03/14/18 11:42 Exam: General: laying bed, no distress apparent Head: atraumatic, normocephalic, prominent forehead Eye: normal appearance, PERRL, no scleral icterus, no conjunctival injection ENT: mucous membranes moist, normal external ear exam, right lower tooth extraction no signs of bleeding Neck: Full range of motion of the neck, no neck stiffness Chest: normal inspection, symmetric chest rise Respiratory: Good respiratory effort. Decreased breath sounds bilaterally, could not appreciate any wheezing or crackles Cardiovascular: Regular rate and rhythm. s1 and s2 No clicks, rubs, gallops, or murmors. Abdomen: Bowel sounds present normoactive x-4 quadrants. Abdomen is soft, nondistended. no Epigastric tenderness. No guarding or rebound. No organomegaly noted, obese musculoskeletal: Spontaneously moving all extremities. no edema, no calf tenderness Skin: warm, dry, intact. Neuro: alert with fluctuating orientation. Movement of all extremities without difficulty. No focal deficits - Assessment and Plan (1) Acute encephalopathy Current Visit: Yes Status: Acute Assessment and Plan: presented with reported episodes of unresponsiveness apparently after taking morning medications. CT head nonacute. Brain MRI unremarkable. UDS negative. UA not indicative of UTI. Etiology unknown at this time he apparently had an episode on 03/13/18 after taking morning medications as well. Possibly medications vs psych related ( has extensive Psych history). Mentation appears to be at baseline on 03/14/18 exam. Psych consulted for medication reconciliation/review. (2) Schizophrenia Current Visit: Yes Status: Acute Assessment and Plan: per hx. Cont home medications. Psych consulted (3) UTI (urinary tract infection) Current Visit: Yes Status: Acute Assessment and Plan: abnormal UA. Urine cx negative. Received 2 doses IV ceftriaxone. (4) Thrombocytopenia Current Visit: No Status: Acute Assessment and Plan: possibly medication induced. PLTs range 79-190. No active bleeding. PT/INR WNL. Peripheral smear - pending. Hematology consulted (5) Developmental delay, moderate Current Visit: Yes Status: Acute Assessment and Plan: mentation appears to be at baseline. Fall, aspiration, seizure precautions (6) Normocytic anemia Current Visit: Yes Status: Acute Assessment and Plan: Baseline H&H ranges anywhere from 10.8 to 13. Currently 11.4 Did have recent tooth extraction and has thrombocytopenia, watch for bleeding. Monitor H&H (7) Left pulmonary lesion Current Visit: Yes Status: Acute Assessment and Plan: CXR showed stable opacity to left lung. Evaluated by Pulmonology 10/[address] in 4 months. Follow-up outpatient as previously planned (8) Current every day smoker Current Visit: Yes Status: Acute Assessment and Plan: nicotine patch (9) Subclinical hypothyroidism Current Visit: Yes Status: Acute Assessment and Plan: suspected. TSH 6.3. T4 pending (10) DVT prophylaxis Current Visit: No Status: Acute Assessment and Plan: SCDs - Time Spent with Patient Total time spent is greater than 50% in coordination of care (as documented) at patient's floor/unit and/or counseling patient: Internal Medicine: Result - Labs CBC & Chem 7: 03/14/18 06:19 03/14/18 06:19 Labs: Short CBC 03/14/18 Range/Units 06:19 WBC 4.3 (4.3-11.1) K/mcL Hgb 11.4 L (12.9-16.9) g/dL Hct 36.4 L (37.5-50.1) % Plt Count 39 L (140-400) K/mcL BMP 03/14/18 06:19 Sodium 141 Potassium 4.4 Chloride 108 H Carbon Dioxide 29 BUN 13 Creatinine 0.77 Glucose 79 Calcium 9.1 - ABG Interpretation ABG results: PT/INR, D-dimer PT 11.5 Seconds (9.4-12.1) 03/13/18 03:36 Consult Discharge Plan - Plan Referrals: NONE,PCP [Primary Care Provider] - (2) Schizophrenia Qualifiers: Schizophrenia type: unspecified Qualified Code(s): F20.9 - Schizophrenia, unspecified (3) UTI (urinary tract infection) Qualifiers: Urinary tract infection type: acute cystitis Hematuria presence: without hematuria Qualified Code(s): N30.00 - Acute cystitis without hematuria
--- NOTE | 2018-03-14 16:39 | Consult Note ---
Date of Encounter: 03/14/18 Time of Encounter: 16:29 Assessment & Recommendation (1) Altered mental status Current visit: Yes Status: Acute Assessment & Recommendation: Client takes a lot of psych meds and the combination may be contributing to recent unsteadiness. However, before making too many changes it would be beneficial to know how long he has been on current meds at current doses. If he recently started a new medication or had a dose increase I would be more likely to view that as the culprit. However, if he has been on current regimen for an extended period of time would not expect meds to be responsible. Recommend checking a VPA level. If level is elevated then Depakote may be contributing to unsteadiness. If VPA level is therapeutic would leave Depakote alone. If any med changes are needed would probably start by decreasing dose of Ativan and/or Seroquel. Ativan can contribute to confusion and falls, particularly in those with cognitive issues. Seroquel is rather anticholinergic and sedating so it could be contributing as well. Would not lower both doses at once but would choose one or the other. If starting with Ativan would go from 1mg to 0.5mg at a time. If staring with Seroquel would decrease daytime dose by 100mg at a time. Qualifiers: Altered mental status type: somnolence Qualified Code(s): R40.0 - Somnolence History of Present Illness Requesting Physician: Kike Modi Reason for consult: altered mental status History of present illness: Mr. Koch is a 43 year old male with MRDD and Schizophrenia who was admitted after becoming unsteady/ataxic at his detention. On eval today client is alert but not able to give this check writer much history or useful information. No one from his detention was present. According to notes it looks like client is currently mentating at his baseline. He did deny SI/HI for me today but otherwise did not know his meds or diagnoses. He was very focused on getting out of the hospital so he could go to the "tape store" and listen to his music. He is taking a lot of mental health medications including Potrero, Depakote, Seroquel, Latuda, and Ativan. All of these meds could contribute to him being unsteady on his feet. However, if he has been on his current med regimen for an extended period of time would not expect his meds to be responsible for his current symptoms. It would be useful to know if he recently started a new medication or had a dose increase with one of his existing psych meds. Potrero level looks good. I did not see a VPA level which might be useful. Depakote could be contributing to unsteadiness if level is too high. Depakote can also cause an isolated increase in Ammonia although his current Ammonia level is not too high. Ativan can certainly contribute to confusion and unsteadiness and Seroquel is rather anticholinergic which can cause some confusion as well. It's possible the combination of meds is too much for him but would want to know how long he has been on current meds at current doses before changing too much. CC: Kike Modi Past Med Surg Social Fam HX - Past Medical History Medical history: COPD, DVT, diabetes, GERD, hyperlipidemia, hypertension, other - Past Psychiatric History Psychiatric history: Reports: schizophrenia Family psychiatric history: Unknown Family History of Suicide: Unknown - Past Surgical History Surgical History: no surgical history - Social History Smoking Status: Current every day smoker Smokeless Tobacco Status: No Alcohol use: none Drug use: none - Family History Mother Hx Family Cardiac Disorders: Yes Hx Family Respiratory Disorders: No Hx Family Cancer: No Hx Family GI Disorders: Yes (GERD) Hx Family Endocrine Disorder: Yes (DM) Hx Family Neuromuscular Disorders: No Hx Family Neurologic Disorders: No Hx Family HEENT Disorders: No Hx Family Autoimmune Disorders: No Father Living Status: Still Living Hx Family Cardiac Disorders: No Hx Family Respiratory Disorders: No Hx Family Cancer: No Hx Family GI Disorders: No Hx Family Endocrine Disorder: Yes (DM) Hx Family Neuromuscular Disorders: No Hx Family Neurologic Disorders: No Hx Family HEENT Disorders: No Hx Family Autoimmune Disorders: No Medications & Allergies Divalproex (24 HR) [Depakote ER (24 HR)] 1,000 mg PO BID 05/22/15 [History] Gemfibrozil [Lopid] 600 mg PO BID 05/22/15 [History] Haloperidol Decanoate [Haldol Decanoate 100] 125 mg IM Q2W 05/22/15 [History] Lisinopril 2.5 mg PO DAILY 05/22/15 [History] Potrero Carbonate 300 mg PO 699,199905/22/15 [History] Loratadine [Claritin] 10 mg PO DAILY 05/22/15 [History] Lovastatin [Mevacor] 20 mg PO HS 05/22/15 [History] Lurasidone HCl [Latuda] 80 mg PO QPM 05/22/15 [History] Metformin HCl [Fortamet] 1,000 mg PO 0700 05/22/15 [History] Artificial Tear Drops [Isopto Tears] 1 drop OP DAILY #0 09/02/15 [History] Calcium Carbonate/Vitamin D3 [Oyster Shell Calcium-Vit D Tab] 1 tab PO BID 09/02/15 [History] LORazepam [Ativan] 1 mg PO 08,199909/02/15 [History] Metformin HCl [Fortamet] 500 mg PO 199909/02/15 [History] Niacin [Niacor] 500 mg PO BID 09/02/15 [History] [place]-3/Dha/Epa/Fish Oil [Fish Oil 1,000 mg Softgel] 1,000 mg PO BID #0 09/02/15 [History] Omeprazole [PriLOSEC] 20 mg PO QAM 09/02/15 [History] cloNIDine [Catapres] 0.1 mg PO DAILY 09/02/15 [History] Acetaminophen [Tylenol] 650 mg PO Q4HR PRN 03/12/18 [History] Albuterol Neb [Proventil Neb] 2.5 mg IH Q2H PRN 03/12/18 [History] Ammonium Lactate [Lac-Hydrin Five] 1 appl TP DAILY 03/12/18 [History] Aspirin [Lo-Dose Aspirin EC] 81 mg PO DAILY 03/12/18 [History] Glucagon,Human Recombinant [Glucagen] 1 vial IM AD PRN 03/12/18 [History] Ibuprofen [Motrin Ib] 400 mg PO Q4H PRN 03/12/18 [History] Levothyroxine Sodium [Tirosint] 75 mcg PO QAM 03/12/18 [History] Loperamide HCl [Imodium A-D] 2 - 4 mg PO DAILY PRN 03/12/18 [History] Magnesium Hydroxide [Milk of Magnesia] 3 ml PO DAILY PRN 03/12/18 [History] Miconazole 2% cream [Alfonso Antifungal] 1 appl TP QAM 03/12/18 [History] Quetiapine Fumarate [Quetiapine Fumarate ER] 200 mg PO 699,199903/12/18 [History] Quetiapine Fumarate [Quetiapine Fumarate ER] 400 mg PO 699,199903/12/18 [History] Tolnaftate [Tinactin] 108 gm TP QAM 03/12/18 [History] Triamcinolone Acet 0.1% CRM [Kenalog] 1 applic TP BID PRN 03/12/18 [History] Trihexyphenidyl HCl 5 mg PO QAM 03/12/18 [History] Allergy/AdvReac Type Severity Reaction Status Date / Time No Known Allergies Allergy Verified 03/12/18 12:19 Review of Systems Constitutional: Denies: fever, chills, weakness, weight change Eyes: Denies: eye pain, vision change Ears, Nose, Throat: Denies: ear pain, throat pain, dental pain, hearing loss, congestion Cardiovascular: Denies: chest pain, palpitations, dyspnea on exertion Respiratory: Denies: cough, dyspnea, wheezes Gastrointestinal: Denies: abdominal pain, nausea, vomiting, diarrhea, co nstipation Genitourinary male: Denies: urgency, dysuria, frequency, genital lesions Musculoskeletal: Denies: joint swelling, joint pain Integumentary: Denies: rash, lesions, pruritus Neurological: Reports: other Endocrine: Denies: fatigue, heat or cold intolerance Hematologic/Lymphatic: Denies: easy bruising, lymphadenopathy Allergic/Immunologic: Denies: urticaria, itchy eyes Psychiatry Exam - Constitutional Vitals: Temp Pulse Resp BP Pulse Ox 97.4 F L 77 16 104/67 97 03/14/18 15:40 03/14/18 15:40 03/14/18 15:40 03/14/18 15:40 03/14/18 15:40 General appearance: disheveled - Musculoskeletal Gait: other Station: relaxed Strength & Tone: normal for patient - Psychiatric Patient Orientation: Yes Person, Yes Place Level of alertness: Alert Behavior: calm, cooperative Psychomotor activity: Normal Eye Contact: Maintains Eye Contact Mood Description: Irritable Affect description: congruent with mood Speech Volume: Normal Speech pattern: normal rate, normal rhythm, normal tone, fluent, spontaneous Language & Vocabulary: consistent with education Thought Process: Perseveration Thought Content: No Suicidal ideation, No Homicidal ideation, No Overt delusions Perceptual Disturbances: No Auditory hallucinations, No Visual hallucinations Attention Span Ability: Capable of Focused Attention Memory Description: Immediate Intact, Recent Impaired, Remote Intact Patient Reliability: Questionable Historian Fund of knowledge: Yes below average Intelligence Estimate: Below Average Judgment: Limited Insight: Minimal Results - Drug Levels and Toxicology Drug Levels and Toxicology: Drug Levels and Toxicity 03/13/18 22:09 Potrero 0.6 - Labs Labs: Laboratory Last Values WBC 4.3 K/mcL (4.3-11.1) 03/14/18 06:19 RBC 3.73 M/mcL (4.19-5.50) L 03/14/18 06:19 Hgb 11.4 g/dL (12.9-16.9) L 03/14/18 06:19 Hct 36.4 % (37.5-50.1) L 03/14/18 06:19 MCV 97.6 fL (83.0-100.0) 03/14/18 06:19 MCH 30.6 pg (28.0-33.3) 03/14/18 06:19 MCHC 31.3 g/dL (31.6-35.5) L 03/14/18 06:19 RDW 14.1 % (11.5-14.5) 03/14/18 06:19 Plt Count 39 K/mcL (140-400) L 03/14/18 06:19 MPV 9.9 fL (9.4-12.4) 03/14/18 06:19 Immature Gran % 0.6 % (0-4) 03/13/18 03:36 Seg Neutrophils % 57.3 % 03/13/18 03:36 Lymphocytes % 27.1 % 03/13/18 03:36 Monocytes % 13.2 % 03/13/18 03:36 Eosinophils % 0.8 % 03/13/18 03:36 Basophils % 1.0 % 03/13/18 03:36 Neutrophils # 3.0 K/mcL (1.6-8.9) 03/13/18 03:36 Lymphocytes # 1.4 K/mcL (0.6-4.6) 03/13/18 03:36 Monocytes # 0.7 K/mcL (0.0-1.3) 03/13/18 03:36 Eosinophils # 0.0 K/mcL (0.0-0.6) 03/13/18 03:36 Basophils # 0.1 K/mcL (0.0-0.2) 03/13/18 03:36 Immature Plt Fraction 1.4 % (1.1-6.1) 03/14/18 06:19 Smear Path Review See Below 03/14/18 06:19 PT 11.5 Seconds (9.4-12.1) 03/13/18 03:36 INR 1.0 03/13/18 03:36 APTT 32.8 Seconds (26.0-36.0) 03/13/18 03:36 Sodium 141 mEq/L (136-145) 03/14/18 06:19 Potassium 4.4 mEq/L (3.5-5.1) 03/14/18 06:19 Chloride 108 mEq/L (98-107) H 03/14/18 06:19 Carbon Dioxide 29 mEq/L (23-29) 03/14/18 06:19 BUN 13 mg/dL (6-20) 03/14/18 06:19 Creatinine 0.77 mg/dL (0.70-1.30) 03/14/18 06:19 Est GFR ( Amer) > 60 (> 60) 03/14/18 06:19 Est GFR (Non-Af Amer) > 60 (> 60) 03/14/18 06:19 BUN/Creatinine Ratio 17 (6-26) 03/14/18 06:19 Glucose 79 mg/dL (70-105) 03/14/18 06:19 POC Glucose 87 mg/dL (70-99) 03/13/18 19:50 Calculated Osmolality 291 (280-300) 03/14/18 06:19 Calcium 9.1 mg/dL (8.6-10.3) 03/14/18 06:19 Phosphorus 3.8 mg/dL (2.7-4.5) 03/13/18 03:36 Magnesium 2.0 mg/dL (1.6-2.6) 03/13/18 03:36 Total Bilirubin 0.4 mg/dL (0.3-1.0) 03/12/18 13:30 Direct Bilirubin 0.1 mg/dL (0.0-0.2) 03/12/18 13:30 Indirect Bilirubin 0.3 mg/dL (0.0-1.2) 03/12/18 13:30 AST 21 Units/L (13-39) 03/12/18 13:30 ALT 14 Units/L (7-52) 03/12/18 13:30 Alkaline Phosphatase 43 Units/L (34-104) 03/12/18 13:30 Ammonia 50 mcmol/L (16-53) 03/14/18 06:19 Creatine Kinase 53 Units/L (30-223) 03/12/18 13:30 Troponin I < 0.03 ng/mL (< 0.04) 03/12/18 13:30 Serum Total Protein 6.1 g/dL (6.4-8.9) L 03/12/18 13:30 Albumin 3.6 g/dL (3.5-5.7) 03/12/18 13:30 Globulin 2.5 g/dL (2.4-3.5) 03/12/18 13:30 Albumin/Globulin Ratio 1.4 (1.1-2.2) 03/12/18 13:30 TSH 6.360 mcIU/mL (0.340-5.600) H 03/13/18 03:36 Urine Color Yellow (Yellow) 03/12/18 15:00 Urine Clarity Clear (Clear) 03/12/18 15:00 Urine pH 7.5 pH Units (5.0-8.0) 03/12/18 15:00 Ur Specific [place] 1.019 (1.010-1.025) 03/12/18 15:00 Urine Protein Negative mg/dL (Neg-Trace) 03/12/18 15:00 Urine Glucose (UA) Normal mg/dL (Normal) 03/12/18 15:00 Urine Ketones Trace mg/dL (Negative) H 03/12/18 15:00 Urine Blood Negative (Negative) 03/12/18 15:00 Urine Nitrite Negative (Negative) 03/12/18 15:00 Urine Bilirubin Small (Negative) H 03/12/18 15:00 Urine Urobilinogen Normal mg/dL (Normal) 03/12/18 15:00 Ur Leukocyte Esterase Trace (Negative) H 03/12/18 15:00 Urine Microscopic RBC 0-3 per hpf (0-3) 03/12/18 15:00 Urine Microscopic WBC 0-3 per hpf (0-3) 03/12/18 15:00 Ur Squamous Epith Cells Moderate per lpf (None-Few) H 03/12/18 15:00 Urine Bacteria None Seen per hpf (None-Few) 03/12/18 15:00 Hyaline Casts None Seen per lpf (None-Few) 03/12/18 15:00 Ur Culture Indicated? YES (NO) A 03/12/18 15:00 Urine Opiates Screen Negative ng/mL (Djnjrt=723) 03/12/18 15:00 Ur Barbiturates Screen Negative ng/mL (Gjoqbj=861) 03/12/18 15:00 Ur Phencyclidine Scrn Negative ng/mL (Cutoff=25) 03/12/18 15:00 Ur Amphetamines Screen Negative ng/mL (Oquilm=8742) 03/12/18 15:00 U Benzodiazepines Scrn Negative ng/mL (Qurfko=784) 03/12/18 15:00 Potrero 0.6 mEq/L (0.6-1.2) 03/13/18 22:09 Urine Cocaine Screen Negative ng/mL (Cutoff= 300) 03/12/18 15:00 U Marijuana (THC) Screen Negative ng/mL (Cutoff = 50) 03/12/18 15:00 Ur Drug Screen Interp See Below 03/12/18 15:00 Ethyl Alcohol < 10 mg/dL (Less than 10) 03/12/18 13:30 Chlamy pneumoniae PCR Not Detected (Not Detect) 03/13/18 23:27 Adenovirus (PCR) Not Detected (Not Detect) 03/13/18 23:27 B. pertussis DNA (PCR) Not Detected (Not Detect) 03/13/18 23:27 B.parapertussis DNA PCR Not Detected (Not Detect) 03/13/18 23:27 Coronavirus OC43 (PCR) Not Detected (Not Detect) 03/13/18 23: Coronavirus HKU1 (PCR) Not Detected (Not Detect) 03/13/18 23: Coronavirus 229E (PCR) Not Detected (Not Detect) 03/13/18 23: Coronavirus NL63 (PCR) Not Detected (Not Detect) 03/13/18 23:27 Human Metapneumovir PCR Not Detected (Not Detect) 03/13/18 23: Influenza A (H1) PCR Not Detected (Not Detect) 03/13/18 23:27 Influ A (H1N1/09) PCR Not Detected (Not Detect) 03/13/18 23:27 Influenza A (H3) PCR Not Detected (Not Detect) 03/13/18 23:27 Influenza A Untype (PCR) Not Detected (Not Detect) 03/13/18 23:27 Influenza Type B (PCR) Not Detected (Not Detect) 03/13/18 23:27 M.pneumoniae DNA (PCR) Not Detected (Not Detect) 03/13/18 23:27 Parainfluenza 1 (PCR) Not Detected (Not Detect) 03/13/18 23:27 Parainfluenza 2 (PCR) Not Detected (Not Detect) 03/13/18 23:27 Parainfluenza 3 (PCR) Not Detected (Not Detect) 03/13/18 23:27 Parainfluenza 4 (PCR) Not Detected (Not Detect) 03/13/18 23:27 RSV (PCR) Not Detected (Not Detect) 03/13/18 23:27 Entero/Rhino (PCR) Not Detected (Not Detect) 03/13/18 23:27 Blood Type B POSITIVE 03/13/18 03:36 Antibody Screen NEGATIVE 03/13/18 03:36 Consult Discharge Plan - Plan Referrals: NONE,PCP [Primary Care Provider] -
[2018-03-14] MEDS: *HR* Promethazine 25 MG/ML VIAL IVP PRN (23:15)
[2018-03-14] MEDS ORDERED: Mag Hydrox/Al Hydrox/Simeth 30 ML UDC PO PRN (23:43)
[2018-03-15] MEDS: 0.9 % Sodium Chloride 1,000 ML IVC SCH (00:34)
[2018-03-15 04:48] LABS: Hematocrit 34.1 % (37.5-50.1); Mean Corpuscular HGB Conc 32.3 g/dL (31.6-35.5); Mean Corpuscular Hemoglobin 31.3 pg (28.0-33.3); Mean Corpuscular Volume 96.9 fL (83.0-100.0); Mean Platelet Volume 9.7 fL (9.4-12.4); Red Blood Count 3.52 M/mcL (4.19-5.50); Red Cell Distribution Width 14.3 % (11.5-14.5)
[2018-03-15 04:50] LABS: Platelet Count 46 K/mcL (140-400)
[2018-03-15 05:07] LABS: BUN/Creatinine Ratio 15 (6-26); Blood Urea Nitrogen 11 mg/dL (6-20); Calcium 8.5 mg/dL (8.6-10.3); Carbon Dioxide 27 mEq/L (23-29); Chloride 111 mEq/L (98-107); Glucose 109 mg/dL (70-105); Osmolality,Calculated 288 (280-300); Potassium 4.6 mEq/L (3.5-5.1); Sodium 139 mEq/L (136-145); eGFR For Non-African Americans > 60 (> 60)
[2018-03-15] MEDS: Divalproex (24 HR) 500 MG TABLET PO SCH ×2 (08:48→22:53)
[2018-03-15] MEDS: *HR* LORazepam 1 MG TABLET PO SCH ×2 (08:48→19:39)
[2018-03-15] MEDS: Loratadine 10 MG TABLET PO SCH (08:48)
[2018-03-15] MEDS: Cholecalciferol (D-3) 1,000 UNIT TABLET PO SCH (08:48)
[2018-03-15] MEDS: Nicotine 21 MG PATCH.TD24 TD SCH (08:49)
[2018-03-15] MEDS: Artificial Tears SOLN 15 ML BOTTLE OP SCH (08:51)
[2018-03-15] MEDS: Lithium Carbonate 300 MG CAPSULE PO SCH ×2 (08:51→19:39)
[2018-03-15] MEDS: (Omega-3/Dha/Epa/Fish Oil [Fish Oil 1,000 Mg Softgel]) PO SCH (08:52)
[2018-03-15] MEDS: NIACIN 500 MG PO SCH (08:52)
[2018-03-15] MEDS: TOLNAFTATE 108 GM TP SCH (08:52)
[2018-03-15] MEDS: cloNIDine HCl 0.1 MG TABLET PO SCH (08:52)
[2018-03-15] MEDS: Thiamine (B-1) 100 MG in D5% in Water 50 ML IVPB SCH (08:53)
[2018-03-15] MEDS: Ammonium Lactate 30 APPL/225 GM BOTTLE TP SCH (09:01)
[2018-03-15 11:06] LABS: % Iron Saturation 36 % (20-55); Iron 116 mcg/dL (65-175); Lactate Dehydrogenase 113 Units/L (140-271); Transferrin 230 mg/dL (203-362)
[2018-03-15 11:23] LABS: Ferritin 57 ng/mL (20-250)
[2018-03-15 11:29] LABS: Folate 9.3 ng/mL (3.0-16.0); Hepatitis B Surface Antigen Nonreactive (Nonreactive)
[2018-03-15 11:57] LABS: Hepatitis B Core IgM Nonreactive (Nonreactive)
[2018-03-15 11:58] LABS: Hepatitis C Virus Antibody Nonreactive (Nonreactive)
--- NOTE | 2018-03-15 11:58 | Internal Med Progress Note ---
<Velasquez Calero P - Last Filed: 03/15/18 12:12> Hospitalist Progress Note - Encounter Date of Encounter: 03/15/18 Time of Encounter: 09:30 - Subjective Interval History: 42 year old male with MRDD lives at [facility] home, COPD, DM2, Bipolar disorder on multiple psych medications and recent tooth extraction presented to the ED as he has become more lethargic over the past 2 days and has become more unsteady on his feet. At ED CT head performed which was negative for any acute abnormalities. Chest x-ray did not show any acute cardiopulmonary disease. UA was positive and urine toxicology was negative Today during my visit the patient was stated on the bed, oriented to time, place, person. He was slightly confused but not in acute distress. She denied any unsteady gait , other new problems. His vitals were stable. Psychiatrist and Hemo -onco on the board today. - Exam Vitals: Temp Pulse Resp BP Pulse Ox 97.6 F 75 16 115/77 97 03/15/18 05:49 03/15/18 05:49 03/15/18 05:49 03/15/18 05:49 03/15/18 05:49 Exam: General: laying bed, no distress apparent Head: atraumatic, normocephalic, prominent forehead Eye: normal appearance, PERRL, no scleral icterus, no conjunctival injection ENT: mucous membranes moist, normal external ear exam, right lower tooth extraction no signs of bleeding Neck: Full range of motion of the neck, no neck stiffness Chest: normal inspection, symmetric chest rise Respiratory: Good respiratory effort. Decreased breath sounds bilaterally, could not appreciate any wheezing or crackles Cardiovascular: Regular rate and rhythm. s1 and s2 No clicks, rubs, gallops, or murmors. Abdomen: Bowel sounds present normoactive x-4 quadrants. Abdomen is soft, nondistended. no Epigastric tenderness. No guarding or rebound. No organomegaly noted, obese musculoskeletal: Spontaneously moving all extremities. no edema, no calf tenderness Skin: warm, dry, intact. Neuro: alert with fluctuating orientation. Movement of all extremities without difficulty. No focal deficits - Assessment and Plan (1) Acute encephalopathy Current Visit: Yes Status: Acute Assessment and Plan: The patient was presented for on a steady gait and altered mental status, it might be because of infective Vs toxic-metabolic cause. The patient was taking different medication for his thyroid disorder, bipolar disorder, mental retardation with development delay, urine drug screen was negative and viral respiratory panel was also negative. The patient has urinary tract infection on urine analysis, but urine culture came negative. We have ordered serum ammonia level, serum valproate level, and liver scan. (2) UTI (urinary tract infection) Current Visit: Yes Status: Acute Assessment and Plan: Urinalysis done in ED showed infection, he was treated with IV ceftriaxone Urine culture came negative today, we have stopped IV antibiotic (3) Thrombocytopenia Current Visit: Yes Status: Acute Assessment and Plan: The patient has low platelet count, the latest one is 46, it came up from 38. He denied any bleeding disorder, bruits, petechiae etc. It might be drug-induced pancytopenia We are closely following up his platelet count. (4) Pulmonary nodules Current Visit: Yes Status: Acute Assessment and Plan: PET scan performed on 10/28/17- Minimal metabolic activity is seen within peripheral and bandlike zones of consolidation within the left lung, favoring etiology such as rounded atelectasis or scarring over malignancy as a consequence.There is however mild activity within loculated small left pleural effusion. Some considerations include inflammatory, infectious, or malignant effusion. Continued CT follow-up is suggested. (5) Normocytic anemia Current Visit: Yes Status: Acute Assessment and Plan: Baseline H&H ranges anywhere from 10.8 to 13 Currently 10.8 (6) Developmental delay, moderate Current Visit: Yes Status: Acute Assessment and Plan: This is a patient with mental retardation with developmental delay; moderate Fall, aspiration, seizure precautions (7) Bipolar disease, chronic Current Visit: Yes Status: Acute Assessment and Plan: We have resumed all medication The patient is not combative today. - Time Spent with Patient Total time spent is greater than 50% in coordination of care (as documented) at patient's floor/unit and/or counseling patient: Internal Medicine: Result - Labs CBC & Chem 7: 03/15/18 04:38 03/15/18 04:38 Labs: Short CBC 03/15/18 Range/Units 04:38 WBC 5.7 (4.3-11.1) K/mcL Hgb 11.0 L (12.9-16.9) g/dL Hct 34.1 L (37.5-50.1) % Plt Count 46 L (140-400) K/mcL [facility] 03/15/18 04:38 Sodium 139 Potassium 4.6 Chloride 111 H Carbon Dioxide 27 BUN 11 Creatinine 0.74 Glucose 109 H Calcium 8.5 L - ABG Interpretation ABG results: PT/INR, D-dimer PT 11.5 Seconds (9.4-12.1) 03/13/18 03:36 Consult Discharge Plan - Plan Referrals: Susan Barrios MD [Partnered Physician] - 03/17/18 9:00 am <Kam Stokes - Last Filed: 03/15/18 14:47> Hospitalist Progress Note - Encounter Date of Encounter: 03/15/18 - Exam Vitals: Temp Pulse Resp BP Pulse Ox 97.5 F L 85 14 95/65 97 03/15/18 12:03 03/15/18 12:03 03/15/18 12:03 03/15/18 12:03 03/15/18 12:03 - Assessment and Plan (1) Thrombocytopenia Current Visit: No Status: Acute (2) DVT prophylaxis Current Visit: No Status: Acute (3) Acute encephalopathy Current Visit: Yes Status: Acute (4) UTI (urinary tract infection) Current Visit: Yes Status: Acute (5) Normocytic anemia Current Visit: Yes Status: Acute (6) Schizophrenia Current Visit: Yes Status: Acute (7) Developmental delay, moderate Current Visit: Yes Status: Acute (8) Left pulmonary lesion Current Visit: Yes Status: Acute (9) Current every day smoker Current Visit: Yes Status: Acute (10) Subclinical hypothyroidism Current Visit: Yes Status: Acute - Time Spent with Patient Total time spent is greater than 50% in coordination of care (as documented) at patient's floor/unit and/or counseling patient: Internal Medicine: Result - Labs CBC & Chem 7: 03/15/18 04:38 03/15/18 04:38 Labs: Short CBC 03/15/18 Range/Units 04:38 WBC 5.7 (4.3-11.1) K/mcL Hgb 11.0 L (12.9-16.9) g/dL Hct 34.1 L (37.5-50.1) % Plt Count 46 L (140-400) K/mcL [facility] 03/15/18 04:38 Sodium 139 Potassium 4.6 Chloride 111 H Carbon Dioxide 27 BUN 11 Creatinine 0.74 Glucose 109 H Calcium 8.5 L - ABG Interpretation ABG results: PT/INR, D-dimer PT 11.5 Seconds (9.4-12.1) 03/13/18 03:36 - Attending Attestation I examined this patient and my medical decision-making was reviewed with the Resident Physician Dr. Calero. I agree with the documented findings, disposition and treatment plan as described except to the extent set forth below. Mr. Koch is a 43 y/o M with known past medical history of MRDD lives in a care home, COPD, Dm2 and Bipolar who is on multiple psychiatric medication was brought into the ER since patient has been more lethargic for last couple of days and he was unsteady on his feet. He happened to have chronic anemia and thrombocytopenia with unclear etiology. He is alert, awake and oriented to self only, still looks confused. Gen: A, A, O to self only Heart: S1S2 + RRR No murmurs Chest: Diminished BS b/l Ext: trace edema a/p 1. Acute delirium / acute metabolic encephalopathy 2. Chronic anemia 3. Acute on chronic thrombocytopenia 4. Need to r/o cirrhosis of liver 5. Bipolar His ammonia level 50 from y/d His platelets are stable now continue monitoring platelets will check liver ultrasound appreciate heme oncology recommendations PT / OT eval <Velasquez Calero P - Last Filed: 03/15/18 12:12> (2) UTI (urinary tract infection) Qualifiers: Urinary tract infection type: acute cystitis Hematuria presence: without hem aturia Qualified Code(s): N30.00 - Acute cystitis without hematuria <Kam Stokes - Last Filed: 03/15/18 14:47> (4) UTI (urinary tract infection) Qualifiers: Urinary tract infection type: acute cystitis Hematuria presence: without hematuria Qualified Code(s): N30.00 - Acute cystitis without hematuria (6) Schizophrenia Qualifiers: Schizophrenia type: unspecified Qualified Code(s): F20.9 - Schizophrenia, unspecified
[2018-03-15 11:59] LABS: Hepatitis A Antibody IgM Nonreactive (Nonreactive)
--- NOTE | 2018-03-15 12:05 | Oncology Inp Consult Note ---
<Nilda Gu L - Last Filed: 03/15/18 13:54> Date of Encounter: 03/15/18 Time of Encounter: 11:00 Assessment and Plan (1) Thrombocytopenia Status: Acute Assessment and plan: Acute on chronic thrombocytopenia, baseline around 90-100 on prior labs Previously evaluated by Dr. Velásquez in April 2015, discharged from practice due to his stability of platelet count and determined this was likely medication induced He does have hepatic steatosis noted on gallbladder US Admitted for AMS---evaluated by psychiatry, note reviewed, recommended checking ammonia and VPA level. His multiple psychiatry medications may be culprit of presenting symptoms, however, this would be unlikely unless any new medication changes have been made UA indicative of UTI at Urgent Care---treated with rocephin Plan: Check fibrinogen Blood smear pending, check LDH to rule out TMA in presence of thrombocytopenia and AMS (indirect bili is normal making process unlikely.) He has chronic thrombocytopenia which was previously evaluated on 2015 Etiology may be secondary to underlying liver disease vs. medication induced (depakote, although level is normal) vs. infectious etiology/sepsis Check hepatitis panel (2) Pulmonary nodules Status: Acute Assessment and plan: Current patient with Dr. Dumont in Pulmonology for history of left pleural effusion and atelectasis. He was evaluated with PET/CT in October 2017 which revealed Minimal metabolic activity is seen within peripheral and bandlike zones of consolidation within the left lung, favoring etiology such as rounded atelectasis or scarring over malignancy, as well as mild activity in the loculated pleural effusion. He was planned for outpatient CT chest for further evaluation and outpatient follow up around this time. Plan: Outpatient follow up with Dr. Dumont vs. oncology - Data of Consult Patient: known to practice within the last 3 years Consult date: 03/15/18 Requesting Physician: Kam Stokes MD Primary Care Provider: PCP NONE - Consult Narrative Reason for consult: Anemia, Thrombocytopenia History of present illness: Mr. Koch is a 43 year old male with past medical history significant for MRDD and resident of [facility], COPD, DM2, Bipolar disorder on multiple psych medications and recent tooth extraction presented to the ED with AMS. My information was gathered completely from chart review as patient is not able to give reliable history at this time time. Apparently, patient was noted to be increasingly lethargic and unsteady on his feet by caregivers over the past few days. He had also developed foul smelling urine. In the ER, CT head was obtained with no acute abnormality. CXR with no acute abnormality. UA reveals findings of UTI. Urine tox screen negative. Hematology has been consulted for further recommendations and evaluation of patient's thrombocytopenia and anemia. Upon chart review it appears the patient was evaluated by Dr. Velásquez in April 2015 for his chronic thrombocytopenia. At that time was determined that from a cytopenia with stable only be secondary to medications. He was released from the practice around that time. He continues on multiple psychiatric medications including lithium, Depakote, Seroquel, today. Psychiatry has been consulted for evaluation. Current patient with Dr. Dumont in Pulmonology for history of left pleural effusion and atelectasis. He was evaluated with PET/CT in October 2017 which revealed Minimal metabolic activity is seen within peripheral and bandlike zones of consolidation within the left lung, favoring etiology such as rounded atelectasis or scarring over malignancy, as well as mild activity in the loculated pleural effusion. He was planned for outpatient CT chest for further evaluation and outpatient follow up around this time. Past Med Surg Social Fam HX - Past Medical History Medical history: COPD, DVT, diabetes, GERD, hyperlipidemia, hypertension, other Additional medical history: cataracts. speech impediment Psychiatric history: schizophrenia - Past Surgical History Surgical History: no surgical history - Social History Smoking Status: Current every day smoker Smokeless Tobacco Status: No Alcohol use: none Drug use: none - Family History Mother Hx Family Cardiac Disorders: Yes Hx Family Respiratory Disorders: No Hx Family Cancer: No Hx Family GI Disorders: Yes (GERD) Hx Family Endocrine Disorder: Yes (DM) Hx Family Neuromuscular Disorders: No Hx Family Neurologic Disorders: No Hx Family HEENT Disorders: No Hx Family Autoimmune Disorders: No Father Living Status: Still Living Hx Family Cardiac Disorders: No Hx Family Respiratory Disorders: No Hx Family Cancer: No Hx Family GI Disorders: No Hx Family Endocrine Disorder: Yes (DM) Hx Family Neuromuscular Disorders: No Hx Family Neurologic Disorders: No Hx Family HEENT Disorders: No Hx Family Autoimmune Disorders: No Medications and Allergies Divalproex (24 HR) [Depakote ER (24 HR)] 1,000 mg PO BID 05/22/15 [History] Gemfibrozil [Lopid] 600 mg PO BID 05/22/15 [History] Haloperidol Decanoate [Haldol Decanoate 100] 125 mg IM Q2W 05/22/15 [History] Lisinopril 2.5 mg PO DAILY 05/22/15 [History] [place] Carbonate 300 mg PO 0700,199905/22/15 [History] Loratadine [Claritin] 10 mg PO DAILY 05/22/15 [History] Lovastatin [Mevacor] 20 mg PO HS 05/22/15 [History] Lurasidone HCl [Latuda] 80 mg PO QPM 05/22/15 [History] Metformin HCl [Fortamet] 1,000 mg PO 0700 05/22/15 [History] Artificial Tear Drops [Isopto Tears] 1 drop OP DAILY #0 09/02/15 [History] Calcium Carbonate/Vitamin D3 [Oyster Shell Calcium-Vit D Tab] 1 tab PO BID 09/02/15 [History] LORazepam [Ativan] 1 mg PO 0800,199909/02/15 [History] Metformin HCl [Fortamet] 500 mg PO 199909/02/15 [History] Niacin [Niacor] 500 mg PO BID 09/02/15 [History] [place]-3/Dha/Epa/Fish Oil [Fish Oil 1,000 mg Softgel] 1,000 mg PO BID #0 09/02/15 [History] Omeprazole [PriLOSEC] 20 mg PO QAM 09/02/15 [History] cloNIDine [Catapres] 0.1 mg PO DAILY 09/02/15 [History] Acetaminophen [Tylenol] 650 mg PO Q4HR PRN 03/12/18 [History] Albuterol Neb [Proventil Neb] 2.5 mg IH Q2H PRN 03/12/18 [History] Ammonium Lactate [Lac-Hydrin Five] 1 appl TP DAILY 03/12/18 [History] Aspirin [Lo-Dose Aspirin EC] 81 mg PO DAILY 03/12/18 [History] Glucagon,Human Recombinant [Glucagen] 1 vial IM AD PRN 03/12/18 [History] Ibuprofen [Motrin Ib] 400 mg PO Q4H PRN 03/12/18 [History] Levothyroxine Sodium [Tirosint] 75 mcg PO QAM 03/12/18 [History] Loperamide HCl [Imodium A-D] 2 - 4 mg PO DAILY PRN 03/12/18 [History] Magnesium Hydroxide [Milk of Magnesia] 3 ml PO DAILY PRN 03/12/18 [History] Miconazole 2% cream [Alfonso Antifungal] 1 appl TP QAM 03/12/18 [History] Quetiapine Fumarate [Quetiapine Fumarate ER] 200 mg PO 699,199903/12/18 [History] Quetiapine Fumarate [Quetiapine Fumarate ER] 400 mg PO 699,199903/12/18 [History] Tolnaftate [Tinactin] 108 gm TP QAM 03/12/18 [History] Triamcinolone Acet 0.1% CRM [Kenalog] 1 applic TP BID PRN 03/12/18 [History] Trihexyphenidyl HCl 5 mg PO QAM 03/12/18 [History] Allergy/AdvReac Type Severity Reaction Status Date / Time No Known Allergies Allergy Verified 03/12/18 12:19 ROS unobtainable: due to mental status Oncology - Exam - Constitutional General appearance: disheveled, no acute distress, no febrile - Head Head exam: Present: atraumatic - ENT ENT exam: Present: mucous membranes moist, normal oropharynx - Respiratory Respiratory exam: Present: CTAB. Absent: respiratory distress - Cardiovascular Cardiovascular exam: Present: RRR, +S1, +S2 - GI/Abdominal GI/Abdominal exam: Present: normal bowel sounds, soft. Absent: tenderness - Extremities Exam Extremities exam: Absent: calf tenderness - Neurological Exam Neurological exam: Present: alert, no focal deficits, strengths equal and symetr throughout Additional comments: follows only some commands at times, moves all 4 extremities spontaneously, oriented to person - Psychiatric Psychiatric exam: Present: agitated, flat affect - Skin Skin exam: Present: dry, intact, normal color, warm Consult Discharge Plan - Plan Referrals: Susan Barrios MD [Partnered Physician] - 03/17/18 9:00 am Inpatient Charges Provider: Dr. Kenzie Salcedo <Ja Salcedo - Last Filed: 03/15/18 15:43> Date of Encounter: 03/15/18 - Data of Consult Requesting Physician: Kam Stokes MD Primary Care Provider: PCP NONE - Attending Attestation Patient is lethargic and not able to give much history on my exam. The history and physical prior lab works, hematology documentation reviewed patient with chronic thrombocytopenia with some acute worsening with this hospitalization without any clinical evidence of bleeding. We will obtain a peripheral smear for review by pathology. Does not appear patient is hemolyzing, mental status abnormalities related to other factors. We will continue monitoring platelet counts which are chronically low possibly due to his seizure medications. DEpakote levels being sent. . I examined this patient and my medical decision-making was reviewed with the Advanced Practice Nurse, Nilda Gu. I agree with the documented findings, disposition and treatment plan as described except to the extent set forth below. Inpatient Charges Provider: Dr. Kenzie Salcedo Consult - Inpatient: [id number]
[2018-03-16 03:49] LABS: Mean Corpuscular HGB Conc 31.6 g/dL (31.6-35.5); Mean Corpuscular Hemoglobin 30.7 pg (28.0-33.3); Mean Corpuscular Volume 97.2 fL (83.0-100.0); Red Blood Count 3.91 M/mcL (4.19-5.50); Red Cell Distribution Width 14.3 % (11.5-14.5)
[2018-03-16 03:50] LABS: Platelet Count 54 K/mcL (140-400)
[2018-03-16 04:10] LABS: BUN/Creatinine Ratio 18 (6-26); Blood Urea Nitrogen 13 mg/dL (6-20); Calcium 8.9 mg/dL (8.6-10.3); Carbon Dioxide 28 mEq/L (23-29); Chloride 109 mEq/L (98-107); Glucose 76 mg/dL (70-105); Osmolality,Calculated 289 (280-300); Potassium 5.3 mEq/L (3.5-5.1); Sodium 140 mEq/L (136-145); eGFR For Non-African Americans > 60 (> 60)
[2018-03-16] MEDS: Lithium Carbonate 300 MG CAPSULE PO SCH (06:20)
[2018-03-16 06:21] VITALS: BP 138/89
--- NOTE | 2018-03-16 06:26 | Electrocardiograph Report ---
[facility] Test Date: 2018-03-12 Pat Name: Danny Koch Department: EXAM9 Room: 3B12 Gender: Machine Compositor: : 1975 Requested By: Staci Torres Order Number: [id number] Reading MD: Isaac Mcqueen Measurements Intervals [place] Rate: 74 P: 72 MD: 167 QRS: -25 QRSD: 109 T: 51 QT: 389 QTc: 432 Interpretive Statements Sinus rhythm Borderline left axis deviation Baseline wander in lead(s) V3 Electronically Signed On 03-16-2018 6:24:55 EST by Isaac Mcqueen
[2018-03-16] MEDS: Divalproex (24 HR) 500 MG TABLET PO SCH (09:14)
[2018-03-16] MEDS: cloNIDine HCl 0.1 MG TABLET PO SCH (09:14)
[2018-03-16] MEDS: Loratadine 10 MG TABLET PO SCH (09:14)
[2018-03-16] MEDS: Cholecalciferol (D-3) 1,000 UNIT TABLET PO SCH (09:15)
[2018-03-16] MEDS: *HR* LORazepam 1 MG TABLET PO SCH (09:15)
[2018-03-16] MEDS: Nicotine 21 MG PATCH.TD24 TD SCH (09:16)
[2018-03-16] MEDS: Ammonium Lactate 30 APPL/225 GM BOTTLE TP SCH (09:17)
[2018-03-16] MEDS: Artificial Tears SOLN 15 ML BOTTLE OP SCH (09:17)
[2018-03-16] MEDS: Thiamine (B-1) 100 MG in D5% in Water 50 ML IVPB SCH (09:23)
--- NOTE | 2018-03-16 10:56 | Discharge Summary ---
<Velasquez Calero P - Last Filed: 03/16/18 13:23> - NOTES TO OUTPATIENT PROVIDER Notes to Outpatient Provider: *The patient will follow-up with his primary care provider within a week. *The patient will follow-up with tool and die technician within 1-2 month ( with PET/CT findings in his left lung and suggested CT lung follow up in out patient). *He will follow-up with psychiatrist within 12 months. * He will follow up with Hemo-Onco with in 1-2 months. Orders not resulted at time of discharge: Pending orders 03/12/18 14:05 Culture,Blood [BC] Stat 03/15/18 04:38 Valproate Total & Free AM 0400 03/17/18 04:00 BMP [Basic Metabolic Panel] AM 0400 Complete Blood Count w/o Diff [HEME] AM 0400 03/18/18 04:00 BMP [Basic Metabolic Panel] AM 0400 Complete Blood Count w/o Diff [HEME] AM 0400 03/19/18 04:00 BMP [Basic Metabolic Panel] AM 0400 Complete Blood Count w/o Diff [HEME] AM 0400 Date of Encounter: 03/16/18 Time of Encounter: 10:00 - Discharge Diagnosis (1) Acute encephalopathy Priority: Primary Status: Acute (2) UTI (urinary tract infection) Priority: Primary Status: Resolved Qualifiers: Urinary tract infection type: acute cystitis Hematuria presence: without hematuria Qualified Code(s): N30.00 - Acute cystitis without hematuria (3) Thrombocytopenia Priority: Primary Status: Chronic (4) Pulmonary nodules Priority: Secondary Status: Chronic (5) Normocytic anemia Priority: Primary Status: Chronic (6) Developmental delay, moderate Priority: Secondary Status: Chronic (7) Bipolar disease, chronic Priority: Secondary Status: Chronic Hospital course: Mr. Koch is a 43 year old male with past med history of MRDD lives at [facility], COPD, DM2, Bipolar disorder on multiple psych medications and recent tooth extraction presented to the ED as he has become more lethargic over the past 2 days and has become more unsteady on his feet. At ED CT head performed which was negative for any acute abnormalities. Chest x-ray did not show any acute cardiopulmonary disease. UA was positive and culture was negative and urine toxicology was negative . We admitted this patient for close monitoring and further workup. We consulted psychiatrist,Hemo-oncologist while he was in inpatient. The patient is getting symptomatically better, his vitals are stable. He does not have any confusion today. We are planning him sending home and he will follow-up with his primary care provider within a week, his tool and die technician for his left lung finding within 1-2 month and his psychiatrist within 12 months. We have ordered lactulose in his prescription and he will take till he has had 2-3 soft bowel movements, then he can reduce the dose. - Time Spent with Patient Total time spent providing and/or coordinating discharge services: - Discharge Medications Prescriptions: RX: Lactulose 20 gm PO BID 5 Days #10 mls Home Medications: RX: Divalproex (24 HR) [Depakote ER (24 HR)] 1,000 mg PO BID 05/22/15 [History] RX: Gemfibrozil [Lopid] 600 mg PO BID 05/22/15 [History] RX: Haloperidol Decanoate [Haldol Decanoate 100] 125 mg IM Q2W 05/22/15 [History] RX: Lisinopril 2.5 mg PO DAILY 05/22/15 [History] RX: [place] Carbonate 300 mg PO 07,199905/22/15 [History] RX: Loratadine [Claritin] 10 mg PO DAILY 05/22/15 [History] RX: Lovastatin [Mevacor] 20 mg PO HS 05/22/15 [History] RX: Lurasidone HCl [Latuda] 80 mg PO QPM 05/22/15 [History] RX: Metformin HCl [Fortamet] 1,000 mg PO 0700 05/22/15 [History] RX: Artificial Tear Drops [Isopto Tears] 1 drop OP DAILY #0 09/02/15 [History] RX: Calcium Carbonate/Vitamin D3 [Oyster Shell Calcium-Vit D Tab] 1 tab PO BID 09/02/15 [History] RX: LORazepam [Ativan] 1 mg PO 0800,199909/02/15 [History] RX: Metformin HCl [Fortamet] 500 mg PO 199909/02/15 [History] RX: Niacin [Niacor] 500 mg PO BID 09/02/15 [History] RX: [place]-3/Dha/Epa/Fish Oil [Fish Oil 1,000 mg Softgel] 1,000 mg PO BID #0 09/02/15 [History] RX: Omeprazole [PriLOSEC] 20 mg PO QAM 09/02/15 [History] RX: cloNIDine [Catapres] 0.1 mg PO DAILY 09/02/15 [History] RX: Acetaminophen [Tylenol] 650 mg PO Q4HR PRN 03/12/18 [History] RX: Albuterol Neb [Proventil Neb] 2.5 mg IH Q2H PRN 03/12/18 [History] RX: Ammonium Lactate [Lac-Hydrin Five] 1 appl TP DAILY 03/12/18 [History] RX: Aspirin [Lo-Dose Aspirin EC] 81 mg PO DAILY 03/12/18 [History] RX: Glucagon,Human Recombinant [Glucagen] 1 vial IM AD PRN 03/12/18 [History] RX: Ibuprofen [Motrin Ib] 400 mg PO Q4H PRN 03/12/18 [History] RX: Levothyroxine Sodium [Tirosint] 75 mcg PO QAM 03/12/18 [History] RX: Loperamide HCl [Imodium A-D] 2 - 4 mg PO DAILY PRN 03/12/18 [History] RX: Magnesium Hydroxide [Milk of Magnesia] 3 ml PO DAILY PRN 03/12/18 [History] RX: Miconazole 2% cream [Alfonso Antifungal] 1 appl TP QAM 03/12/18 [History] RX: Quetiapine Fumarate [Quetiapine Fumarate ER] 200 mg PO 07,199903/12/18 [History] RX: Quetiapine Fumarate [Quetiapine Fumarate ER] 400 mg PO 0700,199903/12/18 [History] RX: Tolnaftate [Tinactin] 108 gm TP QAM 03/12/18 [History] RX: Triamcinolone Acet 0.1% CRM [Kenalog] 1 applic TP BID PRN 03/12/18 [History] RX: Trihexyphenidyl HCl 5 mg PO QAM 03/12/18 [History] RX: Lactulose 20 gm PO BID 5 Days #10 mls 03/16/18 [Rx] Allergies/Adverse Reactions: Allergy/AdvReac Type Severity Reaction Status Date / Time No Known Allergies Allergy Verified 03/12/18 12:19 Date of admission: 03/13/18 14:58 Primary care physician: PCP NONE Consults: 03/12/18 17:07 Consult to Case Management [CONS] Routine Comment: Consult to Physical Therapy [CONS] Routine Comment: Evaluate, develop and implement POC Reason for Consult: dispostion Does patient have active BEDREST order?: No Is patient medically & hemodynamically stable?: Yes Patient assessed for mobility or mobilized this visit?: Yes OT [Consult to Occupational Therapy] [CONS] Routine Comment: Evaluate, develop and implement POC Reason for Consult: disposition Does patient have active BEDREST order?: No Is patient medically & hemodynamically stable?: Yes Patient assessed for mobility or mobilized this visit?: Yes 03/13/18 08:01 Consult to Physical Therapy [CONS] Routine Comment: Evaluate, develop and implement POC Reason for Consult: dispostion Does patient have active BEDREST order?: No Is patient medically & hemodynamically stable?: Yes Patient assessed for mobility or mobilized this visit?: Yes 03/14/18 13:38 Consult to Psychiatry [CONS] Routine Consulting Provider: [facility] [place] Reason consult: Altered mental status Medication recommendation 03/14/18 13:44 Consult to Oncology Hematology [CONS] Routine Consulting Provider: Nilda Gu Reason for Consult: thrombocytopenia, anemia Call Completed: Yes - Constitutional Vitals: Temp Pulse Resp BP Pulse Ox 97.8 F 72 16 138/89 97 03/16/18 06:20 03/16/18 06:20 03/16/18 06:20 03/16/18 06:20 03/16/18 06:20 General appearance: Present: A&O X 3, no acute distress Exam: General: laying bed, no distress apparent: vitals stable , Looks Mentally retarded , but not confused. Head: atraumatic, normocephalic, prominent forehead Eye: normal appearance, PERRL, no scleral icterus, no conjunctival injection ENT: mucous membranes moist, normal external ear exam, right lower tooth extraction no signs of bleeding Neck: Full range of motion of the neck, no neck stiffness Chest: normal inspection, symmetric chest rise Respiratory: Good respiratory effort. Decreased breath sounds bilaterally, could not appreciate any wheezing or crackles Cardiovascular: Regular rate and rhythm. s1 and s2 No clicks, rubs, gallops, or murmors. Abdomen: Bowel sounds present normoactive x-4 quadrants. Abdomen is soft, nondistended. no Epigastric tenderness. No guarding or rebound. No organomegaly noted, obese musculoskeletal: Spontaneously moving all extremities. no edema, no calf tenderness Skin: warm, dry, intact. Neuro: alert with fluctuating orientation. Movement of all extremities without difficulty. No focal deficits - Patient Status Disposition: Home, Self-Care Condition: Fair Overall status at discharge: patient is progressing back to baseline - Ambulatory Orders Ambulatory Orders: Complete Blood Count [HEME] Time Frame: 1 Week, Facility: [facility], Location: Lab Comprehensive Metabolic Panel [CHEM] Time Frame: 1 Week, Facility: [facility], Location: Lab - Discharge Instructions Follow Up With: Susan Barrios MD [Partnered Physician] - 03/17/18 9:00 am - Diet and Activity Activity: resume usual activities as tolerated Diet: regular diet <Thallapaneni,Rambabu - Last Filed: 03/16/18 14:49> Orders not resulted at time of discharge: Pending orders 03/12/18 14:05 Culture,Blood [BC] Stat 03/15/18 04:38 Valproate Total & Free AM 0400 Date of Encounter: 03/16/18 - Discharge Diagnosis (1) Thrombocytopenia Status: Acute (2) DVT prophylaxis Status: Acute (3) Acute encephalopathy Status: Acute (4) UTI (urinary tract infection) Status: Resolved Qualifiers: Urinary tract infection type: acute cystitis Hematuria presence: without hematuria Qualified Code(s): N30.00 - Acute cystitis without hematuria (5) Normocytic anemia Status: Chronic (6) Schizophrenia Status: Acute Qualifiers: Schizophrenia type: unspecified Qualified Code(s): F20.9 - Schizophrenia, unspecified (7) Developmental delay, moderate Status: Chronic (8) Left pulmonary lesion Status: Acute (9) Current every day smoker Status: Acute (10) Subclinical hypothyroidism Status: Acute Hospital course: Mr. Koch is a 43 year old male - Time Spent with Patient Total time spent providing and/or coordinating discharge services: Date of admission: 03/13/18 14:58 Primary care physician: PCP NONE Consults: 03/12/18 17:07 Consult to Case Management [CONS] Routine Comment: Consult to Physical Therapy [CONS] Routine Comment: Evaluate, develop and implement POC Reason for Consult: dispostion Does patient have active BEDREST order?: No Is patient medically & hemodynamically stable?: Yes Patient assessed for mobility or mobilized this visit?: Yes OT [Consult to Occupational Therapy] [CONS] Routine Comment: Evaluate, develop and implement POC Reason for Consult: disposition Does patient have active BEDREST order?: No Is patient medically & hemodynamically stable?: Yes Patient assessed for mobility or mobilized this visit?: Yes 03/13/18 08:01 Consult to Physical Therapy [CONS] Routine Comment: Evaluate, develop and implement POC Reason for Consult: dispostion Does patient have active BEDREST order?: No Is patient medically & hemodynamically stable?: Yes Patient assessed for mobility or mobilized this visit?: Yes 03/14/18 13:38 Consult to Psychiatry [CONS] Routine Consulting Provider: Psych[facility] [place] Reason consult: Altered mental status Medication recommendation 03/14/18 13:44 Consult to Oncology Hematology [CONS] Routine Consulting Provider: Nilda Gu Reason for Consult: thrombocytopenia, anemia Call Completed: Yes - Constitutional Vitals: Temp Pulse Resp BP Pulse Ox 97.8 F 72 16 138/89 97 03/16/18 06:20 03/16/18 06:20 03/16/18 06:20 03/16/18 06:20 03/16/18 06:20 - Attending Attestation I examined this patient and my medical decision-[facility]. I agree with the documented findings, disposition and treatment plan as described except to the extent set forth below. Mr. Koch is a 43 y/o M with known past medical history of MRDD lives in a [facility], COPD, Dm2 and Bipolar who is on multiple psychiatric medication was brought into the ER since patient has been more lethargic for last couple of days and he was unsteady on his feet. He happened to have chronic anemia and thrombocytopenia with unclear etiology. He is more alert, awake and O to place, person and time. He wanted to back to [facility]. Gen: A, A, O to self only Heart: S1S2 + RRR No murmurs Chest: Diminished BS b/l Ext: trace edema a/p 1. Acute delirium / acute metabolic encephalopathy 2. Chronic anemia 3. Acute on chronic thrombocytopenia 4. Need to r/o cirrhosis of liver 5. Bipolar His ammonia level slightly elevated today However his mentation is lot better today So recommend to start taking lactulose 20gm BID hold if he gets more than 2-3 BM's His platelets are stable and slowly trending up now reviewed U/S - which did not show any cirrhosis of liver appreciate heme oncology recommendations medically stable to d/c [facility] today
[2018-03-16] MEDS ORDERED: Lactulose Oral Soln 20 GM/30 ML UDC PO SCH (21:00)
[2018-03-17 15:25] LABS: Valproate Free 13 ug/mL (7-23); Valproate Total 66 ug/mL (50-125)
[2018-03-18 10:00] LABS: Valproate % Free 20 % (5-18)
== END 2018-03-16 13:40 | disposition home or self-care (01) | DRG 689 ==
LOC: 3BNU 12:50 → EMEROOARM 12:50 → 3BNU 17:40 → SUATTDRO 03-13 14:58
PROVIDERS: ADMIT Hospitalist; ATTEND Family Medicine